=== PATIENT | female | born 1955 | race American Indian/Alaskan Native ===

== ENCOUNTER 2019-07-14 08:25 | Inpatient (IN) | payer MEDICARE ==
[2019-07-14] MEDS ORDERED: HALOPERIDOL LACTATE 5 MG/1 ML INJ IM PRN (15:19)
[2019-07-14] MEDS ORDERED: MELATONIN 5 MG TAB PO PRN (15:21)
[2019-07-14] MEDS ORDERED: ACETAMINOPHEN 325 MG TAB PO PRN (15:21)
[2019-07-14 16:29] LABS: Bacteria,Urine 1+ /HPF (Negative); Bilirubin,Urine NEG (Negative); Blood,Urine SM (Negative); Color,Urine Yellow (Yellow); Mucus,Urine FEW /HPF; Protein,Urine <15 mg/dL mg/dL (Negative)
[2019-07-14 16:49] LABS: Basophils # (Auto) 0.1 K/mm3 (0.0-0.1); Basophils % (Auto) 0.9 % (0.0-1.8); Eosinophils # (Auto) 0.2 K/mm3 (0.0-0.4); Eosinophils % (Auto) 2.2 % (0.0-4.3); Hematocrit 36.1 % (30.3-42.9); Hemoglobin 11.8 gm/dl (10.1-14.3); Lymphocytes # (Auto) 1.5 K/mm3 (1.2-5.4); Lymphocytes % (Auto) 21.7 % (13.4-35.0); Mean Corpuscular HGB Conc 33 % (30-34); Mean Corpuscular Volume 96 fl (79-97); Monocytes # (Auto) 0.4 K/mm3 (0.0-0.8); Monocytes % (Auto) 5.3 % (0.0-7.3); Platelet Count 351 K/mm3 (140-440); Red Blood Count 3.78 M/mm3 (3.65-5.03); Red Cell Distribution Width 14.8 % (13.2-15.2)
[2019-07-14 17:10] LABS: Alanine Aminotransferase 27 units/L (7-56); Albumin 3.6 g/dL (3.9-5); BUN/Creatinine Ratio 23; Blood Urea Nitrogen 18 mg/dL (7-17); Calcium 8.2 mg/dL (8.4-10.2); Chol/HDL Ratio 2.34 %; HDL Cholesterol 47 mg/dL (40-59); Hemolysis Index 9; LDL Cholesterol,Direct 51 mg/dL (50-130)
[2019-07-14] MEDS: traZODone 50 MG TAB PO SCH ×2 (21:41→21:47)
[2019-07-14] MEDS: risperiDONE 0.25 MG TAB PO SCH ×2 (21:41→21:47)
[2019-07-14] MEDS: LORazepam 2 MG/ML VIAL IM SCH (21:42)
[2019-07-14] MEDS ORDERED: LORazepam 2 MG/ML VIAL IM PRN (21:55)
[2019-07-15] MEDS: risperiDONE 0.25 MG TAB PO SCH ×2 (09:40→22:03)
--- NOTE | 2019-07-15 10:29 | History and Physical Report ---
GP History & Physical - History of Present Illness Date of admission: 07/14/19 Reason for Admission: Danger to self, Impaired reality testing, Psychopathology interference, Unable to care for self Chief Complaint: "I don't know why I am here History of Present Illness: The patient is a 64yo disabled AAF with history of Bipolar disorder, Alcohol use disorder and multiple medical problems including DM, HTN, Breast Ca, and NM. She was transferred from [facility] with history of acute psychosis. She was reportedly repeating words and not making much sense. Patient seen by me this morning. She is alert and oriented but disorganized, confused and not able to give a clear history. She does not know why she is here. She is clearly paranoid but denies SI/HI/AVH. She reports that she was on Seroquel but could not tell the dose. PAST PSYCHIATRIC HISTORY: Diagnoses: Bipolar disorder Suicide attempts or Self-harm behavior: Unknown Prior psychiatric hospitalizations: Yes Substance Abuse history: Unknown Previous psychiatric medications tried: Seroquel Outpatient treatment: Unknown PAST MEDICAL HISTORY: DM, HTN, Breast Ca, and NM Family Psychiatric History None reported or documented SOCIAL HISTORY Marital Status: Living Arrangements: Alone Employment Status: Disabled Access to guns/weapons: no Education: Grade 12 History of Abuse: Unknown Legal History: no REVIEW OF SYSTEMS Constitutional: Negative for weight loss ENT: Negative for stridor Respiratory: Negative for cough or hemoptysis All other systems reviewed and are negative Diagnoses: Schizoaffective disorder, Bipolar type Treatment Plan Patient will be admitted for inpatient psychiatric evaluation, medication adjustment and close monitoring The patient's behavior, mood, sleep and appetite will be closely monitored. Patient will be enrolled in individual and group therapeutic sessions and encouraged to attend. Patient will be provided with a safe and structured environment. Patient's physical health needs will be addressed by the Hospitalist. Hospitalist Consulted Labs including CBC, CMP, Lipid profile and Hemoglobin A1C ordered Social Assessment will be completed and the Pastoral Worker will work with patient and family to ensure a suitable and safe disposition Medication adjustment will be made as clinically indicated The patient agreed on the treatment plan, understood the risk, benefit, altern ative treatment, potential consequence of no treatment, and gave informed consent. ELOS 5 TO 7 days Legal Status: Involuntary Patient Problems: Current Active Problems Schizoaffective disorder, bipolar type (Acute) Reaction to Hospitalization: Accepting Medications and Allergies Allergies Allergy/AdvReac Type Severity Reaction Status Date / Time lisinopril AdvReac Unknown Verified 07/14/19 13:34 Home Medications Medication Instructions Recorded Confirmed Last Taken Type Celexa 40 mg PO DAILY 07/15/19 07/15/19 Unknown History Neurontin 600 mg PO TID 07/15/19 07/15/19 Unknown History Prilosec 20 mg PO DAILY 07/15/19 07/15/19 Unknown History SEROquel 300 mg PO QHS 07/15/19 07/15/19 Unknown History amLODIPine 5 mg PO DAILY 07/15/19 07/15/19 Unknown History metFORMIN 850 mg PO BID 07/15/19 07/15/19 Unknown History Active Meds: Active Medications Acetaminophen (Tylenol) 325 mg PO Q6H PRN PRN Reason: Pain, Mild (1-3) Haloperidol Lactate (Haldol) 5 mg IM Q6H PRN PRN Reason: Agitation Lorazepam (Ativan) 1 mg IM Q6H PRN PRN Reason: Agitation Melatonin (Melatonin) 5 mg PO QHS PRN PRN Reason: Sleep Miscellaneous Medication (Seroquel) 300 mg PO QHS [facility] Miscellaneous Medication (Amlodipine) 5 mg PO DAILY [facility] Miscellaneous Medication (Metformin) 850 mg PO BID [facility] Miscellaneous Medication (Celexa) 40 mg PO DAILY [facility] Miscellaneous Medication (Neurontin) 600 mg PO TID [facility] Risperidone (Risperdal) 0.25 mg PO BID [facility] Last Admin: 07/15/19 09:40 Dose: 0.25 mg Documented by: Trazodone HCl (Desyrel) 50 mg PO QHS [facility] Last Admin: 07/14/19 21:47 Dose: Not Given Documented by: Results - Results Labs/Vitals: Laboratory Last Values WBC 7.1 K/mm3 (4.5-11.0) 07/14/19 16:24 RBC 3.78 M/mm3 (3.65-5.03) 07/14/19 16:24 Hgb 11.8 gm/dl (10.1-14.3) 07/14/19 16:24 Hct 36.1 % (30.3-42.9) 07/14/19 16:24 MCV 96 fl (79-97) 07/14/19 16:24 MCH 31 pg (28-32) 07/14/19 16:24 MCHC 33 % (30-34) 07/14/19 16:24 RDW 14.8 % (13.2-15.2) 07/14/19 16:24 Plt Count 351 K/mm3 (140-440) 07/14/19 16:24 Lymph % (Auto) 21.7 % (13.4-35.0) 07/14/19 16:24 [place] % (Auto) 5.3 % (0.0-7.3) 07/14/19 16:24 Eos % (Auto) 2.2 % (0.0-4.3) 07/14/19 16:24 Baso % (Auto) 0.9 % (0.0-1.8) 07/14/19 16:24 Lymph # 1.5 K/mm3 (1.2-5.4) 07/14/19 16:24 [place] # 0.4 K/mm3 (0.0-0.8) 07/14/19 16:24 Eos # 0.2 K/mm3 (0.0-0.4) 07/14/19 16:24 Baso # 0.1 K/mm3 (0.0-0.1) 07/14/19 16:24 Seg Neutrophils % 69.9 % (40.0-70.0) 07/14/19 16:24 Seg Neutrophils # 5.0 K/mm3 (1.8-7.7) 07/14/19 16:24 Sodium 142 mmol/L (137-145) 07/14/19 16:24 Potassium 3.1 mmol/L (3.6-5.0) L 07/14/19 16:24 Chloride 100.9 mmol/L (98-107) 07/14/19 16:24 Carbon Dioxide 22 mmol/L (22-30) 07/14/19 16:24 Anion Gap 22 mmol/L 07/14/19 16:24 BUN 18 mg/dL (7-17) H 07/14/19 16:24 Creatinine 0.8 mg/dL (0.7-1.2) 07/14/19 16:24 Estimated GFR > 60 ml/min 07/14/19 16:24 BUN/Creatinine Ratio 23 % 07/14/19 16:24 Glucose 115 mg/dL (65-100) H 07/14/19 16:24 POC Glucose 137 (70-105) H 07/15/19 06:42 Hemoglobin A1c 6.4 % (4-6) H 07/14/19 16:24 Calcium 8.2 mg/dL (8.4-10.2) L 07/14/19 16:24 Total Bilirubin 0.50 mg/dL (0.1-1.2) 07/14/19 16:24 AST 40 units/L (5-40) 07/14/19 16:24 ALT 27 units/L (7-56) 07/14/19 16:24 Alkaline Phosphatase 61 units/L (35-129) 07/14/19 16:24 Total Protein 6.7 g/dL (6.3-8.2) 07/14/19 16:24 Albumin 3.6 g/dL (3.9-5) L 07/14/19 16:24 Albumin/Globulin Ratio 1.2 % 07/14/19 16:24 Triglycerides 73 mg/dL (2-149) 07/14/19 16:24 Cholesterol 110 mg/dL (50-199) 07/14/19 16:24 LDL Cholesterol Direct 51 mg/dL (50-130) 07/14/19 16:24 HDL Cholesterol 47 mg/dL (40-59) 07/14/19 16:24 Cholesterol/HDL Ratio 2.34 % 07/14/19 16:24 TSH 3.480 mlU/mL (0.270-4.200) 07/14/19 16:24 Urine Color Yellow (Yellow) 07/14/19 Unknown Urine Turbidity Clear (Clear) 07/14/19 Unknown Urine pH 6.0 (5.0-7.0) 07/14/19 Unknown Ur Specific [place] 1.015 (1.003-1.030) 07/14/19 Unknown Urine Protein <15 mg/dl mg/dL (Negative) 07/14/19 Unknown Urine Glucose (UA) Neg mg/dL (Negative) 07/14/19 Unknown Urine Ketones 20 mg/dL (Negative) 07/14/19 Unknown Urine Blood Sm (Negative) 07/14/19 Unknown Urine Nitrite Neg (Negative) 07/14/19 Unknown Urine Bilirubin Neg (Negative) 07/14/19 Unknown Urine Urobilinogen 2.0 mg/dL (<2.0) 07/14/19 Unknown Ur Leukocyte Esterase Neg (Negative) 07/14/19 Unknown Urine WBC (Auto) 49.0 /HPF (0.0-6.0) H 07/14/19 Unknown Urine RBC (Auto) 7.0 /HPF (0.0-6.0) 07/14/19 Unknown U Epithel Cells (Auto) 2.0 /HPF (0-13.0) 07/14/19 Unknown Urine Bacteria (Auto) 1+ /HPF (Negative) 07/14/19 Unknown Urine Mucus Few /HPF 07/14/19 Unknown Last Vital Signs Temp 98.5 F 07/15/19 10:00 Pulse 70 07/15/19 10:00 Resp 18 07/15/19 10:00 BP 112/49 07/15/19 10:00 Pulse Ox 99 07/15/19 10:00 Physical Examination - Constitutional Vitals: Vital Signs Temp Pulse Resp BP Pulse Ox 98.5 F 70 18 112/49 99 07/15/19 10:00 07/15/19 10:00 07/15/19 10:00 07/15/19 10:00 07/15/19 10:00 Temperature -Last 24 Hours Temperature 98.5 F Temperature 99.6 F Temperature 99.6 F Temperature 99.0 F Mental Status Exam - Vital signs Last Vital Signs Temp 98.5 F 07/15/19 10:00 Pulse 70 07/15/19 10:00 Resp 18 07/15/19 10:00 BP 112/49 07/15/19 10:00 Pulse Ox 99 07/15/19 10:00 - Exam Orientation: place, person Affect: flat Mood: anxious Thought content: delusions, paranoia Thought Process: Disorganized Perceptions: none Speech: slow Concentration: distractible Motor activity: lethargic Level of consciousness: alert Memory: Intact Interaction: uncooperative Assessment and Plan - Psychiatric problem (1) Schizoaffective disorder, bipolar type Current Visit: Yes Status: Acute Physician Certification - Certification Statement Physician Certification Statement: This is an acknowledgement statement that RAGHAVENDRA YO is a 64 year old F who requires inpatient psychiatric admission for treatment which could reasonably be expected to improve the patient's condition for disorganized behavior and inability to care for self Estimated period of time patient will need to remain in the hospital: [5 to 7 days] Plan for post-hospital care: Out-patient care
[2019-07-15] MEDS: GABAPENTIN 300 MG CAP PO SCH ×2 (14:21→21:46)
[2019-07-15] MEDS: CITALOPRAM 20 MG TAB PO SCH (14:46)
--- NOTE | 2019-07-15 15:55 | Consultation ---
History of Present Illness - Reason for Consult Consult date: 07/15/19 Diabetes mellitus and HTN Requesting physician: ELISE LYNN - History of Present Illness Patient is a 64 year old woman with hx of bipolar disorder, alcohol use disorder, diabetes mellitus, hypertension, breast cancer and CAD. Who presents to our facility from [facility] with history of acute psychosis. Were consulted to assist with management of patient's medical conditions. I did discuss with patient extensively she tells me that she has been hospitalized in a [facility] twice in the past when she did not need it. She also denies any chest pain nausea vomiting or diarrhea. Nursing staff reports to me that the patient had some low-grade fever a day ago but none today. And he also reported the patient has some urinary loss indicating incontinence. Past History Past Medical History: diabetes, hypertension, hyperlipidemia Past Surgical History: Other (Appendectomy) Social history: Family history: no significant family history Medications and Allergies Allergies Allergy/AdvReac Type Severity Reaction Status Date / Time lisinopril AdvReac Unknown Verified 07/14/19 13:34 Home Medications Medication Instructions Recorded Confirmed Last Taken Type Celexa 40 mg PO DAILY 07/15/19 07/15/19 Unknown History Neurontin 600 mg PO TID 07/15/19 07/15/19 Unknown History Prilosec 20 mg PO DAILY 07/15/19 07/15/19 Unknown History SEROquel 300 mg PO QHS 07/15/19 07/15/19 Unknown History amLODIPine 5 mg PO DAILY 07/15/19 07/15/19 Unknown History metFORMIN 850 mg PO BID 07/15/19 07/15/19 Unknown History Active Meds: Active Medications Acetaminophen (Tylenol) 325 mg PO Q6H PRN PRN Reason: Pain, Mild (1-3) Amlodipine Besylate (Amlodipine) 5 mg PO QDAY [facility] Citalopram Hydrobromide (Celexa) 40 mg PO QDAY [facility] Last Admin: 07/15/19 14:46 Dose: 40 mg Documented by: Gabapentin (Gabapentin) 600 mg PO Q8HR [facility] Last Admin: 07/15/19 14:21 Dose: 600 mg Documented by: Haloperidol Lactate (Haldol) 5 mg IM Q6H PRN PRN Reason: Agitation Lorazepam (Ativan) 1 mg IM Q6H PRN PRN Reason: Agitation Melatonin (Melatonin) 5 mg PO QHS PRN PRN Reason: Sleep Metformin HCl (Glucophage) 850 mg PO BIDDIAB [facility] Quetiapine Fumarate (Seroquel) 300 mg PO QHS [facility] Risperidone (Risperdal) 0.25 mg PO BID [facility] Last Admin: 07/15/19 09:40 Dose: 0.25 mg Documented by: Trazodone HCl (Desyrel) 50 mg PO QHS [facility] Last Admin: 07/14/19 21:47 Dose: Not Given Documented by: Review of Systems All systems: negative Constitutional: no weight loss, no weight gain, no fever, no chills, no sweats, no night sweats, no fatigue, no weakness, no malaise, no lethargy Cardiovascular: no chest pain, no palpitations, no syncope, no paroxysmal nocturnal dyspnea, no claudication, no high blood pressure, no leg edema, no decreased exercise tolerance Respiratory: no cough with sputum, no hemoptysis, no shortness of breath, no wheezing, no pleurisy, no pain, no pain on inspiration, no sleep apnea, no home oxygen Gastrointestinal: no nausea, no vomiting, no change in bowel habits, no h ematochezia, no early satiety, no heartburn, no jaundice, no dyspepsia/bloating Musculoskeletal: no neck stiffness, no shooting arm pain, no low back pain, no shooting leg pain, no morning stiffness, no muscle weakness, no loss of height, no prior amputations, no other Integumentary: no rash, no redness, no jaundice, no lesions, no color changes, n o unusual bruising, no hirsutism, no foot/leg ulcers Neurological: no weakness, no tingling, no seizures, no ataxia, no change in speech, no hearing difficulties Psychiatric: disorientation, confusion, irritability Endocrine: no heat intolerance, no polyphagia, no deepening of the voice, no low blood sugars, no recent glucocorticoid use Hematologic/Lymphatic: no easy bruising, no easy bleeding, no lymphadenopathy, no lymphedema, no thrombophilia Allergic/Immunologic: no allergic rhinitis, no persistent infections Exam - Constitutional Vitals: Temp Pulse Resp BP Pulse Ox 98.5 F 70 18 112/49 99 07/15/19 10:00 07/15/19 10:00 07/15/19 10:00 07/15/19 10:00 07/15/19 10:00 Results - Labs CBC & Chem 7: 07/14/19 16:24 07/14/19 16:24 Labs: Abnormal lab results 07/14/19 07/14/19 07/14/19 Range/Units 16:18 16:24 16:24 Potassium 3.1 L (3.6-5.0) mmol/L BUN 18 H (7-17) mg/dL Glucose 115 H (65-100) mg/dL POC Glucose 123 H (70-105) Hemoglobin A1c 6.4 H (4-6) % Calcium 8.2 L (8.4-10.2) mg/dL Albumin 3.6 L (3.9-5) g/dL Urine WBC (Auto) (0.0-6.0) /HPF 07/14/19 07/14/19 07/15/19 Range/Units 20:39 Unknown 06:42 Potassium (3.6-5.0) mmol/L BUN (7-17) mg/dL Glucose (65-100) mg/dL POC Glucose 126 H 137 H (70-105) Hemoglobin A1c (4-6) % Calcium (8.4-10.2) mg/dL Albumin (3.9-5) g/dL Urine WBC (Auto) 49.0 H (0.0-6.0) /HPF 07/15/19 Range/Units 12:00 Potassium (3.6-5.0) mmol/L BUN (7-17) mg/dL Glucose (65-100) mg/dL POC Glucose 130 H (70-105) Hemoglobin A1c (4-6) % Calcium (8.4-10.2) mg/dL Albumin (3.9-5) g/dL Urine WBC (Auto) (0.0-6.0) /HPF - Imaging and Cardiology EKG: pending, report reviewed, image reviewed, other Assessment and Plan Patient is a 64 year old woman with hx of bipolar disorder, alcohol use disorder, diabetes mellitus, hypertension, breast cancer and CAD. Who presents to our facility from [facility] with history of acute psychosis. Were consulted to assist with management of patient's medical conditions. I did discuss with patient extensively she tells me that she has been hospitalized in a [facility] twice in the past when she did not need it. She also denies any chest pain nausea vomiting or diarrhea. Nursing staff reports to me that the patient had some low-grade fever a day ago but none today. And he also reported the patient has some urinary loss indicating incontinence. Acute Cystitis HTN DM Urinary incontinence CAD Hyperlipidemia Bipolar Disorder Alcohol use disorder Plan Continue supportive care per Pysch team Agree with resumption of home meds Accu check ac/hs Start on Keflex pO X 3 days DVT/GI propy
[2019-07-15] MEDS: metFORMIN 850 MG TAB PO SCH (19:40)
[2019-07-15] MEDS: cephALEXin 500 MG CAP PO SCH (21:38)
[2019-07-15] MEDS ORDERED: QUEtiapine 100 MG TAB PO SCH (22:00)
[2019-07-15] MEDS: traZODone 50 MG TAB PO SCH (22:03)
[2019-07-16] MEDS: GABAPENTIN 300 MG CAP PO SCH ×3 (06:05→21:52)
[2019-07-16] MEDS: metFORMIN 850 MG TAB PO SCH ×2 (08:40→17:15)
[2019-07-16] MEDS: risperiDONE 0.25 MG TAB PO SCH ×2 (09:54→21:51)
[2019-07-16] MEDS: CITALOPRAM 20 MG TAB PO SCH (09:54)
[2019-07-16] MEDS: cephALEXin 500 MG CAP PO SCH ×2 (09:54→21:51)
--- NOTE | 2019-07-16 09:54 | Progress Note ---
Subjective Date of service: 07/16/19 Principal diagnosis: Schizoaffective disorder, Bpolar type Subjective Comment: I interviewed the patient this morning. Medical records reviewed and patient's progress was discussed with unit staff. Nursing staff reports that patient is not compliant with treatment - refusing to take some her medications. In my interview with the patient this morning, the patient reports mood as ok. She is disorganized, slow and very paranoid. She denies SI/HI/AVH Reason for continuing inpatient treatment: Patient is disorganized, paranoid and unable to care for self Review of Symptoms: Constitutional: Negative for weight loss ENT: Negative for stridor Respiratory: Negative for cough or hemoptysis All other systems reviewed and are negative MSE Appearance: Wearing appropriate clothing. Poor hygiene Behavior: Cooperative. Mood: "OK" Affect: Congruent with stated mood Thought Process: Goal directed Speech: decreased rate Thought Content: Paranoia Harmfulness Denies SI/HI Hallucinations: patient denies Consciousness: alert. Cognition/Memory: normal. Insight/Judgment: Limited. Assessment and Plan (1) Schizoaffective disorder, bipolar type Treatment Plan Due to the psychiatric conditions and treatment listed in the Assessment and Plan - the patient requires continued hospitalization. Will continue inpatient treatment to allow for medication adjustment and monitoring. Will continue q15 min safety checks. Will encourage the use of environmental modifications and non-pharmacologic approaches for the management of behavioral and psychological symptoms. Will continue current psych medications. Medication change made today: None Monitor for medication side effects. The patient will continue on medications for physical illnesses, and Hospitalist will closely monitor these Continue intensive physical and occupational therapies. Monitor patient's mood, sleep, appetite, and behavior closely Encourage patient to participate in individual and group therapeutic sessions on the [place]. Will provide a safe and therapeutic environment for patient. ELOS 5 days Assessment and Plan - Patient Problems (1) Schizoaffective disorder, bipolar type Current Visit: Yes Status: Acute Medications and Allergies Allergies Allergy/AdvReac Type Severity Reaction Status Date / Time lisinopril AdvReac Unknown Verified 07/14/19 13:34 Home Medications Medication Instructions Recorded Confirmed Last Taken Type Celexa 40 mg PO DAILY 07/15/19 07/15/19 Unknown History Neurontin 600 mg PO TID 07/15/19 07/15/19 Unknown History Prilosec 20 mg PO DAILY 07/15/19 07/15/19 Unknown History SEROquel 300 mg PO QHS 07/15/19 07/15/19 Unknown History amLODIPine 5 mg PO DAILY 07/15/19 07/15/19 Unknown History metFORMIN 850 mg PO BID 07/15/19 07/15/19 Unknown History Active Meds: Active Medications Acetaminophen (Tylenol) 325 mg PO Q6H PRN PRN Reason: Pain, Mild (1-3) Amlodipine Besylate (Amlodipine) 5 mg PO QDAY [facility] Cephalexin (Keflex) 500 mg PO Q12HR [facility] Stop: 07/18/19 10:01 Last Admin: 07/15/19 21:38 Dose: 500 mg Documented by: Citalopram Hydrobromide (Celexa) 40 mg PO QDAY [facility] Last Admin: 07/15/19 14:46 Dose: 40 mg Documented by: Gabapentin (Gabapentin) 600 mg PO Q8HR [facility] Last Admin: 07/16/19 06:05 Dose: 600 mg Documented by: Haloperidol Lactate (Haldol) 5 mg IM Q6H PRN PRN Reason: Agitation Lorazepam (Ativan) 1 mg IM Q6H PRN PRN Reason: Agitation Melatonin (Melatonin) 5 mg PO QHS PRN PRN Reason: Sleep Metformin HCl (Glucophage) 850 mg PO BIDDIAB [facility] Last Admin: 07/15/19 19:40 Dose: 850 mg Documented by: Quetiapine Fumarate (Seroquel) 300 mg PO QHS [facility] Last Admin: 07/15/19 21:37 Dose: 150 mg Documented by: Risperidone (Risperdal) 0.25 mg PO BID [facility] Last Admin: 07/15/19 22:03 Dose: Not Given Documented by: Trazodone HCl (Desyrel) 50 mg PO QHS [facility] Last Admin: 07/15/19 22:03 Dose: Not Given Documented by: Results - Results Labs/Vitals: Laboratory Last Values WBC 7.1 K/mm3 (4.5-11.0) 07/14/19 16:24 RBC 3.78 M/mm3 (3.65-5.03) 07/14/19 16:24 Hgb 11.8 gm/dl (10.1-14.3) 07/14/19 16:24 Hct 36.1 % (30.3-42.9) 07/14/19 16:24 MCV 96 fl (79-97) 07/14/19 16:24 MCH 31 pg (28-32) 07/14/19 16:24 MCHC 33 % (30-34) 07/14/19 16:24 RDW 14.8 % (13.2-15.2) 07/14/19 16:24 Plt Count 351 K/mm3 (140-440) 07/14/19 16:24 Lymph % (Auto) 21.7 % (13.4-35.0) 07/14/19 16:24 [place] % (Auto) 5.3 % (0.0-7.3) 07/14/19 16:24 Eos % (Auto) 2.2 % (0.0-4.3) 07/14/19 16:24 Baso % (Auto) 0.9 % (0.0-1.8) 07/14/19 16:24 Lymph # 1.5 K/mm3 (1.2-5.4) 07/14/19 16:24 [place] # 0.4 K/mm3 (0.0-0.8) 07/14/19 16:24 Eos # 0.2 K/mm3 (0.0-0.4) 07/14/19 16:24 Baso # 0.1 K/mm3 (0.0-0.1) 07/14/19 16:24 Seg Neutrophils % 69.9 % (40.0-70.0) 07/14/19 16:24 Seg Neutrophils # 5.0 K/mm3 (1.8-7.7) 07/14/19 16:24 Sodium 142 mmol/L (137-145) 07/14/19 16:24 Potassium 3.1 mmol/L (3.6-5.0) L 07/14/19 16:24 Chloride 100.9 mmol/L (98-107) 07/14/19 16:24 Carbon Dioxide 22 mmol/L (22-30) 07/14/19 16:24 Anion Gap 22 mmol/L 07/14/19 16:24 BUN 18 mg/dL (7-17) H 07/14/19 16:24 Creatinine 0.8 mg/dL (0.7-1.2) 07/14/19 16:24 Estimated GFR > 60 ml/min 07/14/19 16:24 BUN/Creatinine Ratio 23 % 07/14/19 16:24 Glucose 115 mg/dL (65-100) H 07/14/19 16:24 POC Glucose 105 (70-105) 07/16/19 08:10 Hemoglobin A1c 6.4 % (4-6) H 07/14/19 16:24 Calcium 8.2 mg/dL (8.4-10.2) L 07/14/19 16:24 Total Bilirubin 0.50 mg/dL (0.1-1.2) 07/14/19 16:24 AST 40 units/L (5-40) 07/14/19 16:24 ALT 27 units/L (7-56) 07/14/19 16:24 Alkaline Phosphatase 61 units/L (35-129) 07/14/19 16:24 Total Protein 6.7 g/dL (6.3-8.2) 07/14/19 16:24 Albumin 3.6 g/dL (3.9-5) L 07/14/19 16:24 Albumin/Globulin Ratio 1.2 % 07/14/19 16:24 Triglycerides 73 mg/dL (2-149) 07/14/19 16:24 Cholesterol 110 mg/dL (50-199) 07/14/19 16:24 LDL Cholesterol Direct 51 mg/dL (50-130) 07/14/19 16:24 HDL Cholesterol 47 mg/dL (40-59) 07/14/19 16:24 Cholesterol/HDL Ratio 2.34 % 07/14/19 16:24 TSH 3.480 mlU/mL (0.270-4.200) 07/14/19 16:24 Urine Color Yellow (Yellow) 07/14/19 Unknown Urine Turbidity Clear (Clear) 07/14/19 Unknown Urine pH 6.0 (5.0-7.0) 07/14/19 Unknown Ur Specific [place] 1.015 (1.003-1.030) 07/14/19 Unknown Urine Protein <15 mg/dl mg/dL (Negative) 07/14/19 Unknown Urine Glucose (UA) Neg mg/dL (Negative) 07/14/19 Unknown Urine Ketones 20 mg/dL (Negative) 07/14/19 Unknown Urine Blood Sm (Negative) 07/14/19 Unknown Urine Nitrite Neg (Negative) 07/14/19 Unknown Urine Bilirubin Neg (Negative) 07/14/19 Unknown Urine Urobilinogen 2.0 mg/dL (<2.0) 07/14/19 Unknown Ur Leukocyte Esterase Neg (Negative) 07/14/19 Unknown Urine WBC (Auto) 49.0 /HPF (0.0-6.0) H 07/14/19 Unknown Urine RBC (Auto) 7.0 /HPF (0.0-6.0) 07/14/19 Unknown U Epithel Cells (Auto) 2.0 /HPF (0-13.0) 07/14/19 Unknown Urine Bacteria (Auto) 1+ /HPF (Negative) 07/14/19 Unknown Urine Mucus Few /HPF 07/14/19 Unknown Last Vital Signs Temp 98.6 F 07/16/19 08:23 Pulse 86 07/16/19 08:23 Resp 18 07/16/19 08:23 BP 120/72 07/16/19 08:23 Pulse Ox 100 07/16/19 08:23
[2019-07-16] MEDS: amLODIPine 5 MG TAB PO SCH (09:55)
[2019-07-16] MEDS: QUEtiapine 200 MG TAB PO SCH (21:51)
[2019-07-16] MEDS: traZODone 50 MG TAB PO SCH (21:51)
[2019-07-16] MEDS ORDERED: QUEtiapine 100 MG TAB PO SCH (22:00)
[2019-07-17] MEDS: GABAPENTIN 300 MG CAP PO SCH ×3 (06:15→21:35)
[2019-07-17] MEDS: risperiDONE 0.25 MG TAB PO SCH ×2 (09:08→21:36)
[2019-07-17] MEDS: cephALEXin 500 MG CAP PO SCH ×2 (09:08→21:35)
[2019-07-17] MEDS: CITALOPRAM 20 MG TAB PO SCH (09:08)
[2019-07-17] MEDS: amLODIPine 5 MG TAB PO SCH (09:09)
[2019-07-17] MEDS: metFORMIN 850 MG TAB PO SCH ×2 (09:09→17:26)
--- NOTE | 2019-07-17 10:43 | Progress Note ---
Subjective Date of service: 07/17/19 Principal diagnosis: Schizoaffective disorder, Bpolar type Subjective Comment: I interviewed the patient this morning. Medical records reviewed and patient's progress was discussed with unit staff. Patient is improving. She accepted her medications and slept through the night but still disorganized, slow and paranoid. She denies SI/HI/AVH Reason for continuing inpatient treatment: Patient is disorganized, paranoid and unable to care for self Review of Symptoms: Constitutional: Negative for weight loss ENT: Negative for stridor Respiratory: Negative for cough or hemoptysis All other systems reviewed and are negative MSE Appearance: Wearing appropriate clothing. Poor hygiene Behavior: Cooperative. Mood: "OK" Affect: Congruent with stated mood Thought Process: Goal directed Speech: decreased rate Thought Content: Paranoia Harmfulness Denies SI/HI Hallucinations: patient denies Consciousness: alert. Cognition/Memory: normal. Insight/Judgment: Limited. Assessment and Plan (1) Schizoaffective disorder, bipolar type Treatment Plan Due to the psychiatric conditions and treatment listed in the Assessment and Plan - the patient requires continued hospitalization. Will continue inpatient treatment to allow for medication adjustment and monitoring. Will continue q15 min safety checks. Will encourage the use of environmental modifications and non-pharmacologic approaches for the management of behavioral and psychological symptoms. Will continue current psych medications. Medication change made today: None Monitor for medication side effects. The patient will continue on medications for physical illnesses, and Hospitalist will closely monitor these Continue intensive physical and occupational therapies. Monitor patient's mood, sleep, appetite, and behavior closely Encourage patient to participate in individual and group therapeutic sessions on the [place]. Will provide a safe and therapeutic environment for patient. ELOS 4 days Assessment and Plan - Patient Problems (1) Schizoaffective disorder, bipolar type Current Visit: Yes Status: Acute Medications and Allergies Allergies Allergy/AdvReac Type Severity Reaction Status Date / Time lisinopril AdvReac Unknown Verified 07/14/19 13:34 Home Medications Medication Instructions Recorded Confirmed Last Taken Type Celexa 40 mg PO DAILY 07/15/19 07/15/19 Unknown History Neurontin 600 mg PO TID 07/15/19 07/15/19 Unknown History Prilosec 20 mg PO DAILY 07/15/19 07/15/19 Unknown History SEROquel 300 mg PO QHS 07/15/19 07/15/19 Unknown History amLODIPine 5 mg PO DAILY 07/15/19 07/15/19 Unknown History metFORMIN 850 mg PO BID 07/15/19 07/15/19 Unknown History Active Meds: Active Medications Acetaminophen (Tylenol) 325 mg PO Q6H PRN PRN Reason: Pain, Mild (1-3) Amlodipine Besylate (Amlodipine) 5 mg PO QDAY [facility] Last Admin: 07/17/19 09:09 Dose: 5 mg Documented by: Cephalexin (Keflex) 500 mg PO Q12HR [facility] Stop: 07/18/19 10:01 Last Admin: 07/17/19 09:08 Dose: 500 mg Documented by: Citalopram Hydrobromide (Celexa) 40 mg PO QDAY [facility] Last Admin: 07/17/19 09:08 Dose: 40 mg Documented by: Gabapentin (Gabapentin) 600 mg PO Q8HR [facility] Last Admin: 07/17/19 06:15 Dose: 600 mg Documented by: Haloperidol Lactate (Haldol) 5 mg IM Q6H PRN PRN Reason: Agitation Lorazepam (Ativan) 1 mg IM Q6H PRN PRN Reason: Agitation Melatonin (Melatonin) 5 mg PO QHS PRN PRN Reason: Sleep Metformin HCl (Glucophage) 850 mg PO BIDDIAB [facility] Last Admin: 07/17/19 09:09 Dose: 850 mg Documented by: Quetiapine Fumarate (Seroquel) 100 mg PO QHS [facility] Last Admin: 07/16/19 21:58 Dose: 100 mg Documented by: Quetiapine Fumarate (Seroquel) 200 mg PO QHS [facility] Last Admin: 07/16/19 21:51 Dose: 200 mg Documented by: Risperidone (Risperdal) 0.25 mg PO BID [facility] Last Admin: 07/17/19 09:08 Dose: 0.25 mg Documented by: Trazodone HCl (Desyrel) 50 mg PO QHS [facility] Last Admin: 07/16/19 21:51 Dose: 50 mg Documented by: Results - Results Labs/Vitals: Laboratory Last Values WBC 7.1 K/mm3 (4.5-11.0) 07/14/19 16:24 RBC 3.78 M/mm3 (3.65-5.03) 07/14/19 16:24 Hgb 11.8 gm/dl (10.1-14.3) 07/14/19 16:24 Hct 36.1 % (30.3-42.9) 07/14/19 16:24 MCV 96 fl (79-97) 07/14/19 16:24 MCH 31 pg (28-32) 07/14/19 16:24 MCHC 33 % (30-34) 07/14/19 16:24 RDW 14.8 % (13.2-15.2) 07/14/19 16:24 Plt Count 351 K/mm3 (140-440) 07/14/19 16:24 Lymph % (Auto) 21.7 % (13.4-35.0) 07/14/19 16:24 [place] % (Auto) 5.3 % (0.0-7.3) 07/14/19 16:24 Eos % (Auto) 2.2 % (0.0-4.3) 07/14/19 16:24 Baso % (Auto) 0.9 % (0.0-1.8) 07/14/19 16:24 Lymph # 1.5 K/mm3 (1.2-5.4) 07/14/19 16:24 [place] # 0.4 K/mm3 (0.0-0.8) 07/14/19 16:24 Eos # 0.2 K/mm3 (0.0-0.4) 07/14/19 16:24 Baso # 0.1 K/mm3 (0.0-0.1) 07/14/19 16:24 Seg Neutrophils % 69.9 % (40.0-70.0) 07/14/19 16:24 Seg Neutrophils # 5.0 K/mm3 (1.8-7.7) 07/14/19 16:24 Sodium 142 mmol/L (137-145) 07/14/19 16:24 Potassium 3.1 mmol/L (3.6-5.0) L 07/14/19 16:24 Chloride 100.9 mmol/L (98-107) 07/14/19 16:24 Carbon Dioxide 22 mmol/L (22-30) 07/14/19 16:24 Anion Gap 22 mmol/L 07/14/19 16:24 BUN 18 mg/dL (7-17) H 07/14/19 16:24 Creatinine 0.8 mg/dL (0.7-1.2) 07/14/19 16:24 Estimated GFR > 60 ml/min 07/14/19 16:24 BUN/Creatinine Ratio 23 % 07/14/19 16:24 Glucose 115 mg/dL (65-100) H 07/14/19 16:24 POC Glucose 93 (70-105) 07/17/19 07:59 Hemoglobin A1c 6.4 % (4-6) H 07/14/19 16:24 Calcium 8.2 mg/dL (8.4-10.2) L 07/14/19 16:24 Total Bilirubin 0.50 mg/dL (0.1-1.2) 07/14/19 16:24 AST 40 units/L (5-40) 07/14/19 16:24 ALT 27 units/L (7-56) 07/14/19 16:24 Alkaline Phosphatase 61 units/L (35-129) 07/14/19 16:24 Total Protein 6.7 g/dL (6.3-8.2) 07/14/19 16:24 Albumin 3.6 g/dL (3.9-5) L 07/14/19 16:24 Albumin/Globulin Ratio 1.2 % 07/14/19 16:24 Triglycerides 73 mg/dL (2-149) 07/14/19 16:24 Cholesterol 110 mg/dL (50-199) 07/14/19 16:24 LDL Cholesterol Direct 51 mg/dL (50-130) 07/14/19 16:24 HDL Cholesterol 47 mg/dL (40-59) 07/14/19 16:24 Cholesterol/HDL Ratio 2.34 % 07/14/19 16:24 TSH 3.480 mlU/mL (0.270-4.200) 07/14/19 16:24 Urine Color Yellow (Yellow) 07/14/19 Unknown Urine Turbidity Clear (Clear) 07/14/19 Unknown Urine pH 6.0 (5.0-7.0) 07/14/19 Unknown Ur Specific [place] 1.015 (1.003-1.030) 07/14/19 Unknown Urine Protein <15 mg/dl mg/dL (Negative) 07/14/19 Unknown Urine Glucose (UA) Neg mg/dL (Negative) 07/14/19 Unknown Urine Ketones 20 mg/dL (Negative) 07/14/19 Unknown Urine Blood Sm (Negative) 07/14/19 Unknown Urine Nitrite Neg (Negative) 07/14/19 Unknown Urine Bilirubin Neg (Negative) 07/14/19 Unknown Urine Urobilinogen 2.0 mg/dL (<2.0) 07/14/19 Unknown Ur Leukocyte Esterase Neg (Negative) 07/14/19 Unknown Urine WBC (Auto) 49.0 /HPF (0.0-6.0) H 07/14/19 Unknown Urine RBC (Auto) 7.0 /HPF (0.0-6.0) 07/14/19 Unknown U Epithel Cells (Auto) 2.0 /HPF (0-13.0) 07/14/19 Unknown Urine Bacteria (Auto) 1+ /HPF (Negative) 07/14/19 Unknown Urine Mucus Few /HPF 07/14/19 Unknown Last Vital Signs Temp 98.6 F 07/16/19 08:23 Pulse 72 07/17/19 09:09 Resp 18 07/16/19 08:23 BP 110/57 07/17/19 09:09 Pulse Ox 100 07/16/19 08:23
[2019-07-17] MEDS: traZODone 50 MG TAB PO SCH (21:35)
[2019-07-17] MEDS: QUEtiapine 200 MG TAB PO SCH (21:38)
[2019-07-17] MEDS ORDERED: QUEtiapine 200 MG TAB PO SCH (22:00)
[2019-07-17] MEDS: QUEtiapine 100 MG TAB PO SCH (22:20)
[2019-07-18] MEDS: GABAPENTIN 300 MG CAP PO SCH ×3 (06:08→22:30)
[2019-07-18] MEDS: metFORMIN 850 MG TAB PO SCH ×2 (08:53→17:36)
--- NOTE | 2019-07-18 09:20 | Progress Note ---
Subjective Date of service: 07/18/19 Principal diagnosis: Schizoaffective disorder, Bpolar type Subjective Comment: I interviewed the patient this morning. Medical records reviewed and patient's progress was discussed with unit staff. Patient is reports that she was bitten by a rat on her right index finger, she tries to show me the bite don but none visible. She has been preoccupied by thii invisible don, She is disorganized and paranoid. She denies SI/HI/AVH Reason for continuing inpatient treatment: Patient is disorganized, paranoid and unable to care for self Review of Symptoms: Constitutional: Negative for weight loss ENT: Negative for stridor Respiratory: Negative for cough or hemoptysis All other systems reviewed and are negative MSE Appearance: Wearing appropriate clothing. Poor hygiene Behavior: Cooperative. Mood: "OK" Affect: Congruent with stated mood Thought Process: Goal directed Speech: decreased rate Thought Content: Paranoia Harmfulness Denies SI/HI Hallucinations: patient denies Consciousness: alert. Cognition/Memory: normal. Insight/Judgment: Limited. Assessment and Plan (1) Schizoaffective disorder, bipolar type Treatment Plan Due to the psychiatric conditions and treatment listed in the Assessment and Plan - the patient requires continued hospitalization. Will continue inpatient treatment to allow for medication adjustment and monitoring. Will continue q15 min safety checks. Will encourage the use of environmental modifications and non-pharmacologic approaches for the management of behavioral and psychological symptoms. Will continue current psych medications. Medication change made today: Start Depakote DR 250mg bid Monitor for medication side effects. The patient will continue on medications for physical illnesses, and Hospitalist will closely monitor these Continue intensive physical and occupational therapies. Monitor patient's mood, sleep, appetite, and behavior closely Encourage patient to participate in individual and group therapeutic sessions on the [place]. Will provide a safe and therapeutic environment for patient. ELOS 4 days Assessment and Plan - Patient Problems (1) Schizoaffective disorder, bipolar type Current Visit: Yes Status: Acute Medications and Allergies Allergies Allergy/AdvReac Type Severity Reaction Status Date / Time lisinopril AdvReac Unknown Verified 07/14/19 13:34 Home Medications Medication Instructions Recorded Confirmed Last Taken Type Celexa 40 mg PO DAILY 07/15/19 07/15/19 Unknown History Neurontin 600 mg PO TID 07/15/19 07/15/19 Unknown History Prilosec 20 mg PO DAILY 07/15/19 07/15/19 Unknown History SEROquel 300 mg PO QHS 07/15/19 07/15/19 Unknown History amLODIPine 5 mg PO DAILY 07/15/19 07/15/19 Unknown History metFORMIN 850 mg PO BID 07/15/19 07/15/19 Unknown History Active Meds: Active Medications Acetaminophen (Tylenol) 325 mg PO Q6H PRN PRN Reason: Pain, Mild (1-3) Amlodipine Besylate (Amlodipine) 5 mg PO QDAY [facility] Last Admin: 07/17/19 09:09 Dose: 5 mg Documented by: Cephalexin (Keflex) 500 mg PO Q12HR [facility] Stop: 07/18/19 10:01 Last Admin: 07/17/19 21:35 Dose: 500 mg Documented by: Citalopram Hydrobromide (Celexa) 40 mg PO QDAY [facility] Last Admin: 07/17/19 09:08 Dose: 40 mg Documented by: Gabapentin (Gabapentin) 600 mg PO Q8HR [facility] Last Admin: 07/18/19 06:08 Dose: 600 mg Documented by: Haloperidol Lactate (Haldol) 5 mg IM Q6H PRN PRN Reason: Agitation Lorazepam (Ativan) 1 mg IM Q6H PRN PRN Reason: Agitation Melatonin (Melatonin) 5 mg PO QHS PRN PRN Reason: Sleep Metformin HCl (Glucophage) 850 mg PO BIDDIAB [facility] Last Admin: 07/18/19 08:53 Dose: 850 mg Documented by: Quetiapine Fumarate (Seroquel) 200 mg PO QHS [facility] Last Admin: 07/17/19 21:38 Dose: 200 mg Documented by: Quetiapine Fumarate (Seroquel) 100 mg PO QHS [facility] Last Admin: 07/17/19 22:20 Dose: 100 mg Documented by: Risperidone (Risperdal) 0.25 mg PO BID [facility] Last Admin: 07/17/19 21:36 Dose: 0.25 mg Documented by: Trazodone HCl (Desyrel) 50 mg PO QHS [facility] Last Admin: 07/17/19 21:35 Dose: 50 mg Documented by: Results - Results Labs/Vitals: Laboratory Last Values WBC 7.1 K/mm3 (4.5-11.0) 07/14/19 16:24 RBC 3.78 M/mm3 (3.65-5.03) 07/14/19 16:24 Hgb 11.8 gm/dl (10.1-14.3) 07/14/19 16:24 Hct 36.1 % (30.3-42.9) 07/14/19 16:24 MCV 96 fl (79-97) 07/14/19 16:24 MCH 31 pg (28-32) 07/14/19 16:24 MCHC 33 % (30-34) 07/14/19 16:24 RDW 14.8 % (13.2-15.2) 07/14/19 16:24 Plt Count 351 K/mm3 (140-440) 07/14/19 16:24 Lymph % (Auto) 21.7 % (13.4-35.0) 07/14/19 16:24 [place] % (Auto) 5.3 % (0.0-7.3) 07/14/19 16:24 Eos % (Auto) 2.2 % (0.0-4.3) 07/14/19 16:24 Baso % (Auto) 0.9 % (0.0-1.8) 07/14/19 16:24 Lymph # 1.5 K/mm3 (1.2-5.4) 07/14/19 16:24 [place] # 0.4 K/mm3 (0.0-0.8) 07/14/19 16:24 Eos # 0.2 K/mm3 (0.0-0.4) 07/14/19 16: Baso # 0.1 K/mm3 (0.0-0.1) 07/14/19 16:24 Seg Neutrophils % 69.9 % (40.0-70.0) 07/14/19 16: Seg Neutrophils # 5.0 K/mm3 (1.8-7.7) 07/14/19 16:24 Sodium 142 mmol/L (137-145) 07/14/19 16:24 Potassium 3.1 mmol/L (3.6-5.0) L 07/14/19 16:24 Chloride 100.9 mmol/L (98-107) 07/14/19 16:24 Carbon Dioxide 22 mmol/L (22-30) 07/14/19 16:24 Anion Gap 22 mmol/L 07/14/19 16:24 BUN 18 mg/dL (7-17) H 07/14/19 16:24 Creatinine 0.8 mg/dL (0.7-1.2) 07/14/19 16:24 Estimated GFR > 60 ml/min 07/14/19 16:24 BUN/Creatinine Ratio 23 % 07/14/19 16:24 Glucose 115 mg/dL (65-100) H 07/14/19 16:24 POC Glucose 101 (70-105) 07/18/19 07:42 Hemoglobin A1c 6.4 % (4-6) H 07/14/19 16:24 Calcium 8.2 mg/dL (8.4-10.2) L 07/14/19 16:24 Total Bilirubin 0.50 mg/dL (0.1-1.2) 07/14/19 16:24 AST 40 units/L (5-40) 07/14/19 16:24 ALT 27 units/L (7-56) 07/14/19 16:24 Alkaline Phosphatase 61 units/L (35-129) 07/14/19 16:24 Total Protein 6.7 g/dL (6.3-8.2) 07/14/19 16:24 Albumin 3.6 g/dL (3.9-5) L 07/14/19 16:24 Albumin/Globulin Ratio 1.2 % 07/14/19 16:24 Triglycerides 73 mg/dL (2-149) 07/14/19 16:24 Cholesterol 110 mg/dL (50-199) 07/14/19 16:24 LDL Cholesterol Direct 51 mg/dL (50-130) 07/14/19 16:24 HDL Cholesterol 47 mg/dL (40-59) 07/14/19 16:24 Cholesterol/HDL Ratio 2.34 % 07/14/19 16:24 TSH 3.480 mlU/mL (0.270-4.200) 07/14/19 16:24 Urine Color Yellow (Yellow) 07/14/19 Unknown Urine Turbidity Clear (Clear) 07/14/19 Unknown Urine pH 6.0 (5.0-7.0) 07/14/19 Unknown Ur Specific [place] 1.015 (1.003-1.030) 07/14/19 Unknown Urine Protein <15 mg/dl mg/dL (Negative) 07/14/19 Unknown Urine Glucose (UA) Neg mg/dL (Negative) 07/14/19 Unknown Urine Ketones 20 mg/dL (Negative) 07/14/19 Unknown Urine Blood Sm (Negative) 07/14/19 Unknown Urine Nitrite Neg (Negative) 07/14/19 Unknown Urine Bilirubin Neg (Negative) 07/14/19 Unknown Urine Urobilinogen 2.0 mg/dL (<2.0) 07/14/19 Unknown Ur Leukocyte Esterase Neg (Negative) 07/14/19 Unknown Urine WBC (Auto) 49.0 /HPF (0.0-6.0) H 07/14/19 Unknown Urine RBC (Auto) 7.0 /HPF (0.0-6.0) 07/14/19 Unknown U Epithel Cells (Auto) 2.0 /HPF (0-13.0) 07/14/19 Unknown Urine Bacteria (Auto) 1+ /HPF (Negative) 07/14/19 Unknown Urine Mucus Few /HPF 07/14/19 Unknown Last Vital Signs Temp 99.0 F 07/17/19 19:44 Pulse 75 07/17/19 19:44 Resp 18 07/17/19 19:44 BP 111/53 07/17/19 19:44 Pulse Ox 96 07/17/19 19:44
[2019-07-18] MEDS: amLODIPine 5 MG TAB PO SCH (10:08)
[2019-07-18] MEDS: DIVALPROEX DR 250 MG TAB PO SCH ×2 (10:09→22:30)
[2019-07-18] MEDS: CITALOPRAM 20 MG TAB PO SCH (10:09)
[2019-07-18] MEDS: cephALEXin 500 MG CAP PO SCH (10:09)
[2019-07-18] MEDS: traZODone 50 MG TAB PO SCH (22:29)
[2019-07-18] MEDS: QUEtiapine 100 MG TAB PO SCH (22:30)
[2019-07-18] MEDS: QUEtiapine 200 MG TAB PO SCH (22:30)
[2019-07-19] MEDS: GABAPENTIN 300 MG CAP PO SCH ×3 (05:50→21:05)
--- NOTE | 2019-07-19 08:04 | Progress Note ---
Subjective Date of service: 07/19/19 Principal diagnosis: Schizoaffective disorder, Bpolar type Subjective Comment: I interviewed the patient this morning. Medical records reviewed and patient's progress was discussed with unit staff. Per Nursing note: Patient continues to be labile and hyperverbal today. She has multiple phone calls and made several to family members. Patient denies suicidal and homicidal ideations. Denies hallucinations. She was medication compliant and has good appetite. No apparent distress noted. Patient is talkative, tangential, disorganized and paranoid. She denies SI/HI/AVH Reason for continuing inpatient treatment: Patient is disorganized, paranoid and unable to care for self Review of Symptoms: Constitutional: Negative for weight loss ENT: Negative for stridor Respiratory: Negative for cough or hemoptysis All other systems reviewed and are negative MSE Appearance: Wearing appropriate clothing. Poor hygiene Behavior: Cooperative. Mood: "OK" Affect: Congruent with stated mood Thought Process: Goal directed Speech: decreased rate Thought Content: Paranoia Harmfulness Denies SI/HI Hallucinations: patient denies Consciousness: alert. Cognition/Memory: normal. Insight/Judgment: Limited. Assessment and Plan (1) Schizoaffective disorder, bipolar type Treatment Plan Due to the psychiatric conditions and treatment listed in the Assessment and Plan - the patient requires continued hospitalization. Will continue inpatient treatment to allow for medication adjustment and monitoring. Will continue q15 min safety checks. Will encourage the use of environmental modifications and non-pharmacologic approaches for the management of behavioral and psychological symptoms. Will continue current psych medications. Medication change made today: Increase Depakote DR to 500mg bid Monitor for medication side effects. The patient will continue on medications for physical illnesses, and Hospitalist will closely monitor these Continue intensive physical and occupational therapies. Monitor patient's mood, sleep, appetite, and behavior closely Encourage patient to participate in individual and group therapeutic sessions on the [place]. Will provide a safe and therapeutic environment for patient. ELOS 4 days Assessment and Plan - Patient Problems (1) Schizoaffective disorder, bipolar type Current Visit: Yes Status: Acute Medications and Allergies Allergies Allergy/AdvReac Type Severity Reaction Status Date / Time lisinopril AdvReac Unknown Verified 07/14/19 13:34 Home Medications Medication Instructions Recorded Confirmed Last Taken Type Celexa 40 mg PO DAILY 07/15/19 07/15/19 Unknown History Neurontin 600 mg PO TID 07/15/19 07/15/19 Unknown History Prilosec 20 mg PO DAILY 07/15/19 07/15/19 Unknown History SEROquel 300 mg PO QHS 07/15/19 07/15/19 Unknown History amLODIPine 5 mg PO DAILY 07/15/19 07/15/19 Unknown History metFORMIN 850 mg PO BID 07/15/19 07/15/19 Unknown History Active Meds: Active Medications Acetaminophen (Tylenol) 325 mg PO Q6H PRN PRN Reason: Pain, Mild (1-3) Amlodipine Besylate (Amlodipine) 5 mg PO QDAY [facility] Last Admin: 07/18/19 10:08 Dose: 5 mg Documented by: Citalopram Hydrobromide (Celexa) 40 mg PO QDAY [facility] Last Admin: 07/18/19 10:09 Dose: 40 mg Documented by: Divalproex Sodium (Depakote Dr) 250 mg PO BID [facility] Last Admin: 07/18/19 22:30 Dose: 250 mg Documented by: Gabapentin (Gabapentin) 600 mg PO Q8HR [facility] Last Admin: 07/19/19 05:50 Dose: 600 mg Documented by: Haloperidol Lactate (Haldol) 5 mg IM Q6H PRN PRN Reason: Agitation Lorazepam (Ativan) 1 mg IM Q6H PRN PRN Reason: Agitation Melatonin (Melatonin) 5 mg PO QHS PRN PRN Reason: Sleep Metformin HCl (Glucophage) 850 mg PO BIDDIAB [facility] Last Admin: 07/18/19 17:36 Dose: 850 mg Documented by: Quetiapine Fumarate (Seroquel) 200 mg PO QHS [facility] Last Admin: 07/18/19 22:30 Dose: 200 mg Documented by: Quetiapine Fumarate (Seroquel) 100 mg PO QHS [facility] Last Admin: 07/18/19 22:30 Dose: 100 mg Documented by: Trazodone HCl (Desyrel) 50 mg PO QHS [facility] Last Admin: 07/18/19 22:29 Dose: 50 mg Documented by: Results - Results Labs/Vitals: Laboratory Last Values WBC 7.1 K/mm3 (4.5-11.0) 07/14/19 16:24 RBC 3.78 M/mm3 (3.65-5.03) 07/14/19 16:24 Hgb 11.8 gm/dl (10.1-14.3) 07/14/19 16:24 Hct 36.1 % (30.3-42.9) 07/14/19 16:24 MCV 96 fl (79-97) 07/14/19 16:24 MCH 31 pg (28-32) 07/14/19 16:24 MCHC 33 % (30-34) 07/14/19 16:24 RDW 14.8 % (13.2-15.2) 07/14/19 16:24 Plt Count 351 K/mm3 (140-440) 07/14/19 16:24 Lymph % (Auto) 21.7 % (13.4-35.0) 07/14/19 16:24 [place] % (Auto) 5.3 % (0.0-7.3) 07/14/19 16:24 Eos % (Auto) 2.2 % (0.0-4.3) 07/14/19 16:24 Baso % (Auto) 0.9 % (0.0-1.8) 07/14/19 16:24 Lymph # 1.5 K/mm3 (1.2-5.4) 07/14/19 16:24 [place] # 0.4 K/mm3 (0.0-0.8) 07/14/19 16:24 Eos # 0.2 K/mm3 (0.0-0.4) 07/14/19 16:24 Baso # 0.1 K/mm3 (0.0-0.1) 07/14/19 16:24 Seg Neutrophils % 69.9 % (40.0-70.0) 07/14/19 16:24 Seg Neutrophils # 5.0 K/mm3 (1.8-7.7) 07/14/19 16:24 Sodium 142 mmol/L (137-145) 07/14/19 16:24 Potassium 3.1 mmol/L (3.6-5.0) L 07/14/19 16:24 Chloride 100.9 mmol/L (98-107) 07/14/19 16:24 Carbon Dioxide 22 mmol/L (22-30) 07/14/19 16:24 Anion Gap 22 mmol/L 07/14/19 16:24 BUN 18 mg/dL (7-17) H 07/14/19 16:24 Creatinine 0.8 mg/dL (0.7-1.2) 07/14/19 16:24 Estimated GFR > 60 ml/min 07/14/19 16:24 BUN/Creatinine Ratio 23 % 07/14/19 16:24 Glucose 115 mg/dL (65-100) H 07/14/19 16:24 POC Glucose 88 (70-105) 07/19/19 07:55 Hemoglobin A1c 6.4 % (4-6) H 07/14/19 16:24 Calcium 8.2 mg/dL (8.4-10.2) L 07/14/19 16:24 Total Bilirubin 0.50 mg/dL (0.1-1.2) 07/14/19 16:24 AST 40 units/L (5-40) 07/14/19 16:24 ALT 27 units/L (7-56) 07/14/19 16:24 Alkaline Phosphatase 61 units/L (35-129) 07/14/19 16:24 Total Protein 6.7 g/dL (6.3-8.2) 07/14/19 16:24 Albumin 3.6 g/dL (3.9-5) L 07/14/19 16:24 Albumin/Globulin Ratio 1.2 % 07/14/19 16:24 Triglycerides 73 mg/dL (2-149) 07/14/19 16:24 Cholesterol 110 mg/dL (50-199) 07/14/19 16:24 LDL Cholesterol Direct 51 mg/dL (50-130) 07/14/19 16:24 HDL Cholesterol 47 mg/dL (40-59) 07/14/19 16:24 Cholesterol/HDL Ratio 2.34 % 07/14/19 16:24 TSH 3.480 mlU/mL (0.270-4.200) 07/14/19 16:24 Urine Color Yellow (Yellow) 07/14/19 Unknown Urine Turbidity Clear (Clear) 07/14/19 Unknown Urine pH 6.0 (5.0-7.0) 07/14/19 Unknown Ur Specific [place] 1.015 (1.003-1.030) 07/14/19 Unknown Urine Protein <15 mg/dl mg/dL (Negative) 07/14/19 Unknown Urine Glucose (UA) Neg mg/dL (Negative) 07/14/19 Unknown Urine Ketones 20 mg/dL (Negative) 07/14/19 Unknown Urine Blood Sm (Negative) 07/14/19 Unknown Urine Nitrite Neg (Negative) 07/14/19 Unknown Urine Bilirubin Neg (Negative) 07/14/19 Unknown Urine Urobilinogen 2.0 mg/dL (<2.0) 07/14/19 Unknown Ur Leukocyte Esterase Neg (Negative) 07/14/19 Unknown Urine WBC (Auto) 49.0 /HPF (0.0-6.0) H 07/14/19 Unknown Urine RBC (Auto) 7.0 /HPF (0.0-6.0) 07/14/19 Unknown U Epithel Cells (Auto) 2.0 /HPF (0-13.0) 07/14/19 Unknown Urine Bacteria (Auto) 1+ /HPF (Negative) 07/14/19 Unknown Urine Mucus Few /HPF 07/14/19 Unknown Last Vital Signs Temp 98.3 F 07/18/19 19:46 Pulse 73 07/18/19 19:46 Resp 18 07/18/19 19:46 BP 116/65 07/18/19 19:46 Pulse Ox 98 07/18/19 19:46
[2019-07-19] MEDS: amLODIPine 5 MG TAB PO SCH (10:35)
[2019-07-19] MEDS: CITALOPRAM 20 MG TAB PO SCH (10:35)
[2019-07-19] MEDS: metFORMIN 850 MG TAB PO SCH ×2 (10:36→17:46)
[2019-07-19] MEDS: DIVALPROEX DR 250 MG TAB PO SCH ×2 (10:36→21:05)
[2019-07-19] MEDS: PANTOPRAZOLE 20 MG TAB PO SCH (14:47)
[2019-07-19] MEDS: traZODone 50 MG TAB PO SCH (21:05)
[2019-07-19] MEDS: QUEtiapine 200 MG TAB PO SCH (21:05)
[2019-07-19] MEDS: QUEtiapine 100 MG TAB PO SCH (21:05)
[2019-07-20] MEDS: GABAPENTIN 300 MG CAP PO SCH ×3 (06:01→21:19)
[2019-07-20] MEDS ORDERED: LIP THERAPY VASELINE TP PRN (09:02)
--- NOTE | 2019-07-20 09:06 | Progress Note ---
Subjective Date of service: 07/20/19 Principal diagnosis: Schizoaffective disorder, Bpolar type Subjective Comment: Patient continues to be talkative, tangential, disorganized and paranoid. She denies SI/HI/AVH. She is medication compliant and denies side effect. She sleeps well and she has good appetite. Reason for continuing inpatient treatment: Patient is disorganized, paranoid and unable to care for self Review of Symptoms: Constitutional: Negative for weight loss ENT: Negative for stridor Respiratory: Negative for cough or hemoptysis All other systems reviewed and are negative MSE Appearance: Wearing appropriate clothing. Poor hygiene Behavior: Cooperative. Mood: "OK" Affect: Congruent with stated mood Thought Process: Goal directed Speech: decreased rate Thought Content: Paranoia Harmfulness Denies SI/HI Hallucinations: patient denies Consciousness: alert. Cognition/Memory: normal. Insight/Judgment: Limited. Assessment and Plan (1) Schizoaffective disorder, bipolar type Treatment Plan Due to the psychiatric conditions and treatment listed in the Assessment and Plan - the patient requires continued hospitalization. Will continue inpatient treatment to allow for medication adjustment and monitoring. Will continue q15 min safety checks. Will encourage the use of environmental modifications and non-pharmacologic approaches for the management of behavioral and psychological symptoms. Will continue current psych medications. Medication change made today: Increase Depakote DR to 500mg tid and Seroquel to 200mg bid Monitor for medication side effects. The patient will continue on medications for physical illnesses, and Hospitalist will closely monitor these Continue intensive physical and occupational therapies. Monitor patient's mood, sleep, appetite, and behavior closely Encourage patient to participate in individual and group therapeutic sessions on the [place]. Will provide a safe and therapeutic environment for patient. LEANNEOS 4 days Assessment and Plan - Patient Problems (1) Schizoaffective disorder, bipolar type Current Visit: Yes Status: Acute Medications and Allergies Allergies Allergy/AdvReac Type Severity Reaction Status Date / Time lisinopril AdvReac Unknown Verified 07/14/19 13:34 Home Medications Medication Instructions Recorded Confirmed Last Taken Type Celexa 40 mg PO DAILY 07/15/19 07/15/19 Unknown History Neurontin 600 mg PO TID 07/15/19 07/15/19 Unknown History Prilosec 20 mg PO DAILY 07/15/19 07/15/19 Unknown History SEROquel 300 mg PO QHS 07/15/19 07/15/19 Unknown History amLODIPine 5 mg PO DAILY 07/15/19 07/15/19 Unknown History metFORMIN 850 mg PO BID 07/15/19 07/15/19 Unknown History Active Meds: Active Medications Acetaminophen (Tylenol) 325 mg PO Q6H PRN PRN Reason: Pain, Mild (1-3) Amlodipine Besylate (Amlodipine) 5 mg PO QDAY [facility] Last Admin: 07/19/19 10:35 Dose: 5 mg Documented by: Aspirin (Halfprin Ec) 81 mg PO QDAY [facility] Citalopram Hydrobromide (Celexa) 40 mg PO QDAY [facility] Last Admin: 07/19/19 10:35 Dose: 40 mg Documented by: Divalproex Sodium (Depakote Dr) 500 mg PO BID [facility] Last Admin: 07/19/19 21:05 Dose: 500 mg Documented by: Gabapentin (Gabapentin) 600 mg PO Q8HR [facility] Last Admin: 07/20/19 06:01 Dose: 600 mg Documented by: Haloperidol Lactate (Haldol) 5 mg IM Q6H PRN PRN Reason: Agitation Lorazepam (Ativan) 1 mg IM Q6H PRN PRN Reason: Agitation Melatonin (Melatonin) 5 mg PO QHS PRN PRN Reason: Sleep Metformin HCl (Glucophage) 850 mg PO BIDDIAB [facility] Last Admin: 07/19/19 17:46 Dose: 850 mg Documented by: Pantoprazole Sodium (Protonix) 20 mg PO QDAY [facility] Last Admin: 07/19/19 14:47 Dose: 20 mg Documented by: Quetiapine Fumarate (Seroquel) 200 mg PO QHS [facility] Last Admin: 07/19/19 21:05 Dose: 200 mg Documented by: Quetiapine Fumarate (Seroquel) 100 mg PO QHS [facility] Last Admin: 07/19/19 21:05 Dose: 100 mg Documented by: Trazodone HCl (Desyrel) 50 mg PO QHS [facility] Last Admin: 07/19/19 21:05 Dose: 50 mg Documented by: Results - Results Labs/Vitals: Laboratory Last Values WBC 7.1 K/mm3 (4.5-11.0) 07/14/19 16:24 RBC 3.78 M/mm3 (3.65-5.03) 07/14/19 16:24 Hgb 11.8 gm/dl (10.1-14.3) 07/14/19 16:24 Hct 36.1 % (30.3-42.9) 07/14/19 16:24 MCV 96 fl (79-97) 07/14/19 16:24 MCH 31 pg (28-32) 07/14/19 16:24 MCHC 33 % (30-34) 07/14/19 16:24 RDW 14.8 % (13.2-15.2) 07/14/19 16:24 Plt Count 351 K/mm3 (140-440) 07/14/19 16:24 Lymph % (Auto) 21.7 % (13.4-35.0) 07/14/19 16:24 [place] % (Auto) 5.3 % (0.0-7.3) 07/14/19 16:24 Eos % (Auto) 2.2 % (0.0-4.3) 07/14/19 16:24 Baso % (Auto) 0.9 % (0.0-1.8) 07/14/19 16:24 Lymph # 1.5 K/mm3 (1.2-5.4) 07/14/19 16:24 [place] # 0.4 K/mm3 (0.0-0.8) 07/14/19 16:24 Eos # 0.2 K/mm3 (0.0-0.4) 07/14/19 16:24 Baso # 0.1 K/mm3 (0.0-0.1) 07/14/19 16:24 Seg Neutrophils % 69.9 % (40.0-70.0) 07/14/19 16:24 Seg Neutrophils # 5.0 K/mm3 (1.8-7.7) 07/14/19 16:24 Sodium 142 mmol/L (137-145) 07/14/19 16:24 Potassium 3.1 mmol/L (3.6-5.0) L 07/14/19 16:24 Chloride 100.9 mmol/L (98-107) 07/14/19 16:24 Carbon Dioxide 22 mmol/L (22-30) 07/14/19 16:24 Anion Gap 22 mmol/L 07/14/19 16:24 BUN 18 mg/dL (7-17) H 07/14/19 16:24 Creatinine 0.8 mg/dL (0.7-1.2) 07/14/19 16:24 Estimated GFR > 60 ml/min 07/14/19 16:24 BUN/Creatinine Ratio 23 % 07/14/19 16:24 Glucose 115 mg/dL (65-100) H 07/14/19 16:24 POC Glucose 89 (70-105) 07/20/19 06:44 Hemoglobin A1c 6.4 % (4-6) H 07/14/19 16:24 Calcium 8.2 mg/dL (8.4-10.2) L 07/14/19 16:24 Total Bilirubin 0.50 mg/dL (0.1-1.2) 07/14/19 16:24 AST 40 units/L (5-40) 07/14/19 16:24 ALT 27 units/L (7-56) 07/14/19 16:24 Alkaline Phosphatase 61 units/L (35-129) 07/14/19 16:24 Total Protein 6.7 g/dL (6.3-8.2) 07/14/19 16:24 Albumin 3.6 g/dL (3.9-5) L 07/14/19 16:24 Albumin/Globulin Ratio 1.2 % 07/14/19 16:24 Triglycerides 73 mg/dL (2-149) 07/14/19 16:24 Cholesterol 110 mg/dL (50-199) 07/14/19 16:24 LDL Cholesterol Direct 51 mg/dL (50-130) 07/14/19 16:24 HDL Cholesterol 47 mg/dL (40-59) 07/14/19 16:24 Cholesterol/HDL Ratio 2.34 % 07/14/19 16:24 TSH 3.480 mlU/mL (0.270-4.200) 07/14/19 16:24 Urine Color Yellow (Yellow) 07/14/19 Unknown Urine Turbidity Clear (Clear) 07/14/19 Unknown Urine pH 6.0 (5.0-7.0) 07/14/19 Unknown Ur Specific [place] 1.015 (1.003-1.030) 07/14/19 Unknown Urine Protein <15 mg/dl mg/dL (Negative) 07/14/19 Unknown Urine Glucose (UA) Neg mg/dL (Negative) 07/14/19 Unknown Urine Ketones 20 mg/dL (Negative) 07/14/19 Unknown Urine Blood Sm (Negative) 07/14/19 Unknown Urine Nitrite Neg (Negative) 07/14/19 Unknown Urine Bilirubin Neg (Negative) 07/14/19 Unknown Urine Urobilinogen 2.0 mg/dL (<2.0) 07/14/19 Unknown Ur Leukocyte Esterase Neg (Negative) 07/14/19 Unknown Urine WBC (Auto) 49.0 /HPF (0.0-6.0) H 07/14/19 Unknown Urine RBC (Auto) 7.0 /HPF (0.0-6.0) 07/14/19 Unknown U Epithel Cells (Auto) 2.0 /HPF (0-13.0) 07/14/19 Unknown Urine Bacteria (Auto) 1+ /HPF (Negative) 07/14/19 Unknown Urine Mucus Few /HPF 07/14/19 Unknown Last Vital Signs Temp 97.6 F 07/20/19 07:42 Pulse 62 07/20/19 07:42 Resp 18 07/20/19 07:42 BP 95/65 07/20/19 07:42 Pulse Ox 99 07/20/19 07:42
[2019-07-20] MEDS: ASPIRIN EC 81 MG TAB PO SCH (09:12)
[2019-07-20] MEDS: PANTOPRAZOLE 20 MG TAB PO SCH (09:12)
[2019-07-20] MEDS: CITALOPRAM 20 MG TAB PO SCH (09:13)
[2019-07-20] MEDS: metFORMIN 850 MG TAB PO SCH ×2 (09:13→18:12)
[2019-07-20] MEDS: amLODIPine 5 MG TAB PO SCH (09:14)
[2019-07-20] MEDS: QUEtiapine 200 MG TAB PO SCH ×2 (09:38→21:19)
[2019-07-20] MEDS: DIVALPROEX DR 250 MG TAB PO SCH ×2 (13:14→21:20)
[2019-07-20] MEDS: traZODone 50 MG TAB PO SCH (21:19)
[2019-07-21] MEDS: GABAPENTIN 300 MG CAP PO SCH ×3 (06:02→21:26)
[2019-07-21] MEDS: metFORMIN 850 MG TAB PO SCH ×2 (09:09→17:16)
[2019-07-21] MEDS: ASPIRIN EC 81 MG TAB PO SCH (09:09)
[2019-07-21] MEDS: QUEtiapine 200 MG TAB PO SCH ×2 (09:11→21:26)
[2019-07-21] MEDS: CITALOPRAM 20 MG TAB PO SCH (09:11)
[2019-07-21] MEDS: DIVALPROEX DR 250 MG TAB PO SCH ×3 (09:11→21:47)
[2019-07-21] MEDS: PANTOPRAZOLE 20 MG TAB PO SCH (09:11)
[2019-07-21] MEDS: amLODIPine 5 MG TAB PO SCH (09:13)
--- NOTE | 2019-07-21 09:42 | Progress Note ---
Subjective Date of service: 07/21/19 Principal diagnosis: Schizoaffective disorder, Bpolar type Subjective Comment: No significant improvement. Per Collateral information obtained by the Switchboard And Control Room Operator, she is non-compliant with treatment, she is a hoarder. SW called the pharmacy and confirmed PT has been on the following medications since 2016 and the last time she filled them was as follows: Seroquel 300MG per night filled for 90 day supply on 04/13/19 Celexa 40 MG daily filled for 90 day supply on 06/13 Gabapentin 600 MG 3X times a day - filled on 06/23/19 for 30 day supply Chlorthalidone 25 MG per day - filled on 06/01/19 for 90 day supply Omeprazole 40MG daily filled on 06/01/19 for 30 day supply Metformin 850MG 2x times per day - filled for 90 day supply on 04/13/19 Patient continues to be talkative, tangential, disorganized and paranoid. She denies SI/HI/AVH. She is medication compliant and denies side effect. She sleeps well and she has good appetite. Reason for continuing inpatient treatment: Patient is disorganized, paranoid and unable to care for self Review of Symptoms: Constitutional: Negative for weight loss ENT: Negative for stridor Respiratory: Negative for cough or hemoptysis All other systems reviewed and are negative MSE Appearance: Wearing appropriate clothing. Poor hygiene Behavior: Cooperative. Mood: "OK" Affect: Congruent with stated mood Thought Process: Goal directed Speech: decreased rate Thought Content: Paranoia Harmfulness Denies SI/HI Hallucinations: patient denies Consciousness: alert. Cognition/Memory: normal. Insight/Judgment: Limited. Assessment and Plan (1) Schizoaffective disorder, bipolar type Treatment Plan Due to the psychiatric conditions and treatment listed in the Assessment and Plan - the patient requires continued hospitalization. Will continue inpatient treatment to allow for medication adjustment and monitoring. Will continue q15 min safety checks. Will encourage the use of environmental modifications and non-pharmacologic approaches for the management of behavioral and psychological symptoms. Will continue current psych medications. Medication change made today: Will start Risperidone 0.5mg bid with a plan to transition to Invega Sustenna to ensure compliance consultant for medication side effects. The patient will continue on medications for physical illnesses, and Hospitalist will closely monitor these Continue intensive physical and occupational therapies. Monitor patient's mood, sleep, appetite, and behavior closely Encourage patient to participate in individual and group therapeutic sessions on the [place]. Will provide a safe and therapeutic environment for patient. ELOS 7 days Assessment and Plan - Patient Problems (1) Schizoaffective disorder, bipolar type Current Visit: Yes Status: Acute Medications and Allergies Allergies Allergy/AdvReac Type Severity Reaction Status Date / Time lisinopril AdvReac Unknown Verified 07/14/19 13:34 Home Medications Medication Instructions Recorded Confirmed Last Taken Type Celexa 40 mg PO DAILY 07/15/19 07/15/19 Unknown History Neurontin 600 mg PO TID 07/15/19 07/15/19 Unknown History Prilosec 20 mg PO DAILY 07/15/19 07/15/19 Unknown History SEROquel 300 mg PO QHS 07/15/19 07/15/19 Unknown History amLODIPine 5 mg PO DAILY 07/15/19 07/15/19 Unknown History metFORMIN 850 mg PO BID 07/15/19 07/15/19 Unknown History Active Meds: Active Medications Acetaminophen (Tylenol) 325 mg PO Q6H PRN PRN Reason: Pain, Mild (1-3) Last Admin: 07/20/19 09:14 Dose: 325 mg Documented by: Amlodipine Besylate (Amlodipine) 5 mg PO QDAY [facility] Last Admin: 07/21/19 09:13 Dose: 5 mg Documented by: Aspirin (Halfprin Ec) 81 mg PO QDAY [facility] Last Admin: 07/21/19 09:09 Dose: 81 mg Documented by: Citalopram Hydrobromide (Celexa) 40 mg PO QDAY [facility] Last Admin: 07/21/19 09:11 Dose: 40 mg Documented by: Divalproex Sodium (Depakote Dr) 500 mg PO TID [facility] Last Admin: 07/21/19 09:11 Dose: 500 mg Documented by: Gabapentin (Gabapentin) 600 mg PO Q8HR [facility] Last Admin: 07/21/19 06:02 Dose: 600 mg Documented by: Haloperidol Lactate (Haldol) 5 mg IM Q6H PRN PRN Reason: Agitation Hydrophilic Ointment (Vaseline Lip Therapy) 1 applic TP DIRECT PRN PRN Reason: Dry Lips Lorazepam (Ativan) 1 mg IM Q6H PRN PRN Reason: Agitation Melatonin (Melatonin) 5 mg PO QHS PRN PRN Reason: Sleep Metformin HCl (Glucophage) 850 mg PO BIDDIAB [facility] Last Admin: 07/21/19 09:09 Dose: 850 mg Documented by: Pantoprazole Sodium (Protonix) 20 mg PO QDAY [facility] Last Admin: 07/21/19 09:11 Dose: 20 mg Documented by: Quetiapine Fumarate (Seroquel) 200 mg PO BID [facility] Last Admin: 07/21/19 09:11 Dose: 200 mg Documented by: Trazodone HCl (Desyrel) 50 mg PO QHS [facility] Last Admin: 07/20/19 21:19 Dose: 50 mg Documented by: Results - Results Labs/Vitals: Laboratory Last Values WBC 7.1 K/mm3 (4.5-11.0) 07/14/19 16:24 RBC 3.78 M/mm3 (3.65-5.03) 07/14/19 16:24 Hgb 11.8 gm/dl (10.1-14.3) 07/14/19 16:24 Hct 36.1 % (30.3-42.9) 07/14/19 16:24 MCV 96 fl (79-97) 07/14/19 16:24 MCH 31 pg (28-32) 07/14/19 16:24 MCHC 33 % (30-34) 07/14/19 16:24 RDW 14.8 % (13.2-15.2) 07/14/19 16:24 Plt Count 351 K/mm3 (140-440) 07/14/19 16:24 Lymph % (Auto) 21.7 % (13.4-35.0) 07/14/19 16:24 [place] % (Auto) 5.3 % (0.0-7.3) 07/14/19 16:24 Eos % (Auto) 2.2 % (0.0-4.3) 07/14/19 16:24 Baso % (Auto) 0.9 % (0.0-1.8) 07/14/19 16:24 Lymph # 1.5 K/mm3 (1.2-5.4) 07/14/19 16:24 [place] # 0.4 K/mm3 (0.0-0.8) 07/14/19 16:24 Eos # 0.2 K/mm3 (0.0-0.4) 07/14/19 16:24 Baso # 0.1 K/mm3 (0.0-0.1) 07/14/19 16:24 Seg Neutrophils % 69.9 % (40.0-70.0) 07/14/19 16:24 Seg Neutrophils # 5.0 K/mm3 (1.8-7.7) 07/14/19 16:24 Sodium 142 mmol/L (137-145) 07/14/19 16:24 Potassium 3.1 mmol/L (3.6-5.0) L 07/14/19 16:24 Chloride 100.9 mmol/L (98-107) 07/14/19 16:24 Carbon Dioxide 22 mmol/L (22-30) 07/14/19 16:24 Anion Gap 22 mmol/L 07/14/19 16:24 BUN 18 mg/dL (7-17) H 07/14/19 16:24 Creatinine 0.8 mg/dL (0.7-1.2) 07/14/19 16:24 Estimated GFR > 60 ml/min 07/14/19 16:24 BUN/Creatinine Ratio 23 % 07/14/19 16:24 Glucose 115 mg/dL (65-100) H 07/14/19 16:24 POC Glucose 80 (70-105) 07/21/19 08:08 Hemoglobin A1c 6.4 % (4-6) H 07/14/19 16:24 Calcium 8.2 mg/dL (8.4-10.2) L 07/14/19 16:24 Total Bilirubin 0.50 mg/dL (0.1-1.2) 07/14/19 16:24 AST 40 units/L (5-40) 07/14/19 16:24 ALT 27 units/L (7-56) 07/14/19 16:24 Alkaline Phosphatase 61 units/L (35-129) 07/14/19 16:24 Total Protein 6.7 g/dL (6.3-8.2) 07/14/19 16:24 Albumin 3.6 g/dL (3.9-5) L 07/14/19 16:24 Albumin/Globulin Ratio 1.2 % 07/14/19 16:24 Triglycerides 73 mg/dL (2-149) 07/14/19 16:24 Cholesterol 110 mg/dL (50-199) 07/14/19 16:24 LDL Cholesterol Direct 51 mg/dL (50-130) 07/14/19 16:24 HDL Cholesterol 47 mg/dL (40-59) 07/14/19 16:24 Cholesterol/HDL Ratio 2.34 % 07/14/19 16:24 TSH 3.480 mlU/mL (0.270-4.200) 07/14/19 16:24 Urine Color Yellow (Yellow) 07/14/19 Unknown Urine Turbidity Clear (Clear) 07/14/19 Unknown Urine pH 6.0 (5.0-7.0) 07/14/19 Unknown Ur Specific [place] 1.015 (1.003-1.030) 07/14/19 Unknown Urine Protein <15 mg/dl mg/dL (Negative) 07/14/19 Unknown Urine Glucose (UA) Neg mg/dL (Negative) 07/14/19 Unknown Urine Ketones 20 mg/dL (Negative) 07/14/19 Unknown Urine Blood Sm (Negative) 07/14/19 Unknown Urine Nitrite Neg (Negative) 07/14/19 Unknown Urine Bilirubin Neg (Negative) 07/14/19 Unknown Urine Urobilinogen 2.0 mg/dL (<2.0) 07/14/19 Unknown Ur Leukocyte Esterase Neg (Negative) 07/14/19 Unknown Urine WBC (Auto) 49.0 /HPF (0.0-6.0) H 07/14/19 Unknown Urine RBC (Auto) 7.0 /HPF (0.0-6.0) 07/14/19 Unknown U Epithel Cells (Auto) 2.0 /HPF (0-13.0) 07/14/19 Unknown Urine Bacteria (Auto) 1+ /HPF (Negative) 07/14/19 Unknown Urine Mucus Few /HPF 07/14/19 Unknown Last Vital Signs Temp 97.5 F L 07/21/19 07:31 Pulse 61 07/21/19 09:13 Resp 18 07/21/19 07:31 BP 112/60 07/21/19 09:13 Pulse Ox 96 07/21/19 07:31
[2019-07-21] MEDS: risperiDONE 0.25 MG TAB PO SCH ×3 (10:31→21:26)
[2019-07-21] MEDS: traZODone 50 MG TAB PO SCH (21:26)
[2019-07-21] MEDS ORDERED: DIVALPROEX DR 125 MG TAB ONE (21:32)
[2019-07-22] MEDS: GABAPENTIN 300 MG CAP PO SCH ×3 (05:54→21:44)
[2019-07-22] MEDS ORDERED: risperiDONE 0.25 MG TAB PO SCH (07:53)
--- NOTE | 2019-07-22 07:53 | Progress Note ---
Subjective Date of service: 07/22/19 Principal diagnosis: Schizoaffective disorder, Bpolar type Subjective Comment: Patient continues to be talkative, tangential, disorganized and paranoid. She denies SI/HI/AVH. She is medication compliant and denies side effect. She sleeps well and she has good appetite. Reason for continuing inpatient treatment: Patient is disorganized, paranoid and unable to care for self Review of Symptoms: Constitutional: Negative for weight loss ENT: Negative for stridor Respiratory: Negative for cough or hemoptysis All other systems reviewed and are negative MSE Appearance: Wearing appropriate clothing. Poor hygiene Behavior: Cooperative. Mood: "OK" Affect: Congruent with stated mood Thought Process: Goal directed Speech: decreased rate Thought Content: Paranoia Harmfulness Denies SI/HI Hallucinations: patient denies Consciousness: alert. Cognition/Memory: normal. Insight/Judgment: Limited. Assessment and Plan (1) Schizoaffective disorder, bipolar type Treatment Plan Due to the psychiatric conditions and treatment listed in the Assessment and Plan - the patient requires continued hospitalization. Will continue inpatient treatment to allow for medication adjustment and monitoring. Will continue q15 min safety checks. Will encourage the use of environmental modifications and non-pharmacologic approaches for the management of behavioral and psychological symptoms. Will continue current psych medications. Medication change made today: Will increase Risperidone to 1mg bid with a plan to transition to Invega Sustenna to ensure vp compliance for medication side effects. The patient will continue on medications for physical illnesses, and Hospitalist will closely monitor these Continue intensive physical and occupational therapies. Monitor patient's mood, sleep, appetite, and behavior closely Encourage patient to participate in individual and group therapeutic sessions on the [place]. Will provide a safe and therapeutic environment for patient. ELOS 7 days Assessment and Plan - Patient Problems (1) Schizoaffective disorder, bipolar type Current Visit: Yes Status: Acute Medications and Allergies Allergies Allergy/AdvReac Type Severity Reaction Status Date / Time lisinopril AdvReac Unknown Verified 07/14/19 13:34 Home Medications Medication Instructions Recorded Confirmed Last Taken Type Celexa 40 mg PO DAILY 07/15/19 07/15/19 Unknown History Neurontin 600 mg PO TID 07/15/19 07/15/19 Unknown History Prilosec 20 mg PO DAILY 07/15/19 07/15/19 Unknown History SEROquel 300 mg PO QHS 07/15/19 07/15/19 Unknown History amLODIPine 5 mg PO DAILY 07/15/19 07/15/19 Unknown History metFORMIN 850 mg PO BID 07/15/19 07/15/19 Unknown History Active Meds: Active Medications Acetaminophen (Tylenol) 325 mg PO Q6H PRN PRN Reason: Pain, Mild (1-3) Last Admin: 07/20/19 09:14 Dose: 325 mg Documented by: Amlodipine Besylate (Amlodipine) 5 mg PO QDAY [facility] Last Admin: 07/21/19 09:13 Dose: 5 mg Documented by: Aspirin (Halfprin Ec) 81 mg PO QDAY [facility] Last Admin: 07/21/19 09:09 Dose: 81 mg Documented by: Citalopram Hydrobromide (Celexa) 40 mg PO QDAY [facility] Last Admin: 07/21/19 09:11 Dose: 40 mg Documented by: Divalproex Sodium (Depakote Dr) 500 mg PO TID [facility] Last Admin: 07/21/19 21:47 Dose: 500 mg Documented by: Gabapentin (Gabapentin) 600 mg PO Q8HR [facility] Last Admin: 07/22/19 05:54 Dose: 600 mg Documented by: Haloperidol Lactate (Haldol) 5 mg IM Q6H PRN PRN Reason: Agitation Hydrophilic Ointment (Vaseline Lip Therapy) 1 applic TP DIRECT PRN PRN Reason: Dry Lips Lorazepam (Ativan) 1 mg IM Q6H PRN PRN Reason: Agitation Melatonin (Melatonin) 5 mg PO QHS PRN PRN Reason: Sleep Metformin HCl (Glucophage) 850 mg PO BIDDIAB [facility] Last Admin: 07/21/19 17:16 Dose: 850 mg Documented by: Pantoprazole Sodium (Protonix) 20 mg PO QDAY [facility] Last Admin: 07/21/19 09:11 Dose: 20 mg Documented by: Quetiapine Fumarate (Seroquel) 200 mg PO BID [facility] Last Admin: 07/21/19 21:26 Dose: 200 mg Documented by: Risperidone (Risperdal) 0.5 mg PO BID [facility] Last Admin: 07/21/19 21:26 Dose: 0.5 mg Documented by: Trazodone HCl (Desyrel) 50 mg PO QHS [facility] Last Admin: 07/21/19 21:26 Dose: 50 mg Documented by: Results - Results Labs/Vitals: Laboratory Last Values WBC 7.1 K/mm3 (4.5-11.0) 07/14/19 16: RBC 3.78 M/mm3 (3.65-5.03) 07/14/19 16: Hgb 11.8 gm/dl (10.1-14.3) 07/14/19 16:24 Hct 36.1 % (30.3-42.9) 07/14/19 16: MCV 96 fl (79-97) 07/14/19 16: MCH 31 pg (28-32) 07/14/19 16: MCHC 33 % (30-34) 07/14/19 16: RDW 14.8 % (13.2-15.2) 07/14/19: Plt Count 351 K/mm3 (140-440) 07/14/19 16: Lymph % (Auto) 21.7 % (13.4-35.0) 07/14/19: [place] % (Auto) 5.3 % (0.0-7.3) 07/14/19 16: Eos % (Auto) 2.2 % (0.0-4.3) 07/14/19 16: Baso % (Auto) 0.9 % (0.0-1.8) 07/14/19: Lymph # 1.5 K/mm3 (1.2-5.4) 07/14/19 16: [place] # 0.4 K/mm3 (0.0-0.8) 07/14/19: Eos # 0.2 K/mm3 (0.0-0.4) 07/14/19 16: Baso # 0.1 K/mm3 (0.0-0.1) 07/14/19 16: Seg Neutrophils % 69.9 % (40.0-70.0) 07/14/19 16: Seg Neutrophils # 5.0 K/mm3 (1.8-7.7) 07/14/19 16:24 Sodium 142 mmol/L (137-145) 07/14/19 16:24 Potassium 3.1 mmol/L (3.6-5.0) L 07/14/19 16: Chloride 100.9 mmol/L (98-107) 07/14/19 16:24 Carbon Dioxide 22 mmol/L (22-30) 07/14/19 16:24 Anion Gap 22 mmol/L 07/14/19 16:24 BUN 18 mg/dL (7-17) H 07/14/19 16:24 Creatinine 0.8 mg/dL (0.7-1.2) 07/14/19 16:24 Estimated GFR > 60 ml/min 07/14/19 16:24 BUN/Creatinine Ratio 23 % 07/14/19 16:24 Glucose 115 mg/dL (65-100) H 07/14/19 16:24 POC Glucose 75 (70-105) 07/21/19 11:23 Hemoglobin A1c 6.4 % (4-6) H 07/14/19 16:24 Calcium 8.2 mg/dL (8.4-10.2) L 07/14/19 16:24 Total Bilirubin 0.50 mg/dL (0.1-1.2) 07/14/19 16:24 AST 40 units/L (5-40) 07/14/19 16:24 ALT 27 units/L (7-56) 07/14/19 16:24 Alkaline Phosphatase 61 units/L (35-129) 07/14/19 16:24 Total Protein 6.7 g/dL (6.3-8.2) 07/14/19 16:24 Albumin 3.6 g/dL (3.9-5) L 07/14/19 16:24 Albumin/Globulin Ratio 1.2 % 07/14/19 16:24 Triglycerides 73 mg/dL (2-149) 07/14/19 16:24 Cholesterol 110 mg/dL (50-199) 07/14/19 16:24 LDL Cholesterol Direct 51 mg/dL (50-130) 07/14/19 16:24 HDL Cholesterol 47 mg/dL (40-59) 07/14/19 16:24 Cholesterol/HDL Ratio 2.34 % 07/14/19 16:24 TSH 3.480 mlU/mL (0.270-4.200) 07/14/19 16:24 Urine Color Yellow (Yellow) 07/14/19 Unknown Urine Turbidity Clear (Clear) 07/14/19 Unknown Urine pH 6.0 (5.0-7.0) 07/14/19 Unknown Ur Specific [place] 1.015 (1.003-1.030) 07/14/19 Unknown Urine Protein <15 mg/dl mg/dL (Negative) 07/14/19 Unknown Urine Glucose (UA) Neg mg/dL (Negative) 07/14/19 Unknown Urine Ketones 20 mg/dL (Negative) 07/14/19 Unknown Urine Blood Sm (Negative) 07/14/19 Unknown Urine Nitrite Neg (Negative) 07/14/19 Unknown Urine Bilirubin Neg (Negative) 07/14/19 Unknown Urine Urobilinogen 2.0 mg/dL (<2.0) 07/14/19 Unknown Ur Leukocyte Esterase Neg (Negative) 07/14/19 Unknown Urine WBC (Auto) 49.0 /HPF (0.0-6.0) H 07/14/19 Unknown Urine RBC (Auto) 7.0 /HPF (0.0-6.0) 07/14/19 Unknown U Epithel Cells (Auto) 2.0 /HPF (0-13.0) 07/14/19 Unknown Urine Bacteria (Auto) 1+ /HPF (Negative) 07/14/19 Unknown Urine Mucus Few /HPF 07/14/19 Unknown Last Vital Signs Temp 97.3 F L 07/21/19 22:00 Pulse 61 07/21/19 22:00 Resp 17 07/21/19 22:00 BP 136/59 07/21/19 22:00 Pulse Ox 98 07/21/19 22:00
[2019-07-22] MEDS: ASPIRIN EC 81 MG TAB PO SCH (10:01)
[2019-07-22] MEDS: PANTOPRAZOLE 20 MG TAB PO SCH (10:01)
[2019-07-22] MEDS: metFORMIN 850 MG TAB PO SCH ×2 (10:01→18:00)
[2019-07-22] MEDS: CITALOPRAM 20 MG TAB PO SCH (10:01)
[2019-07-22] MEDS: risperiDONE 1 MG TAB PO SCH ×2 (10:04→21:45)
[2019-07-22] MEDS: QUEtiapine 200 MG TAB PO SCH ×2 (10:04→21:45)
[2019-07-22] MEDS: DIVALPROEX DR 250 MG TAB PO SCH ×3 (10:04→20:37)
[2019-07-22] MEDS: amLODIPine 5 MG TAB PO SCH (10:05)
[2019-07-22] MEDS: traZODone 50 MG TAB PO SCH (21:44)
[2019-07-23] MEDS: GABAPENTIN 300 MG CAP PO SCH ×3 (05:20→21:42)
--- NOTE | 2019-07-23 08:07 | Progress Note ---
Subjective Date of service: 07/23/19 Principal diagnosis: Schizoaffective disorder, Bpolar type Subjective Comment: Patient is calmer and less talkative this morning. She states her mood is great, "I am doing just very well". She denies paranoid/SI/HI/AVH. She is medication compliant and denies side effect. She sleeps well and she has good appetite. Nurse Report: Patient was calm last evening. She complains of feeling "over medicated". She states she took a nap because she was so sleepy. The patient's phone calls were limited after 9 pm due to her becoming increasingly agitated when she talks to others on the phone. She was medication compliant and slept continually throughout the night. The patient presents as sleeping 8 plus hours. Will continue to try to give patient breaks from continuous phone calls for the therapeutic benefit of a leveling out of her mood. Reason for continuing inpatient treatment: Patient is disorganized, paranoid and unable to care for self Review of Symptoms: Constitutional: Negative for weight loss ENT: Negative for stridor Respiratory: Negative for cough or hemoptysis All other systems reviewed and are negative MSE Appearance: Wearing appropriate clothing. Poor hygiene Behavior: Cooperative. Mood: "OK" Affect: Congruent with stated mood Thought Process: Goal directed Speech: decreased rate Thought Content: Paranoia Harmfulness Denies SI/HI Hallucinations: patient denies Consciousness: alert. Cognition/Memory: normal. Insight/Judgment: Limited. Assessment and Plan (1) Schizoaffective disorder, bipolar type Treatment Plan Due to the psychiatric conditions and treatment listed in the Assessment and Plan - the patient requires continued hospitalization. Will continue inpatient treatment to allow for medication adjustment and monitoring. Will continue q15 min safety checks. Will encourage the use of environmental modifications and non-pharmacologic approaches for the management of behavioral and psychological symptoms. Will continue current psych medications. Medication change made today: Will decrease and discontinue Seroquel and continue Risperidone 1mg bid with a plan to transition to Invega Sustenna to ensure supervisor seaming for medication side effects. The patient will continue on medications for physical illnesses, and Hospitalist will closely monitor these Continue intensive physical and occupational therapies. Monitor patient's mood, sleep, appetite, and behavior closely Encourage patient to participate in individual and group therapeutic sessions on the [place]. Will provide a safe and therapeutic environment for patient. ELOS 5 days Assessment and Plan - Patient Problems (1) Schizoaffective disorder, bipolar type Current Visit: Yes Status: Acute Medications and Allergies Allergies Allergy/AdvReac Type Severity Reaction Status Date / Time lisinopril AdvReac Unknown Verified 07/14/19 13:34 Home Medications Medication Instructions Recorded Confirmed Last Taken Type Celexa 40 mg PO DAILY 07/15/19 07/15/19 Unknown History Neurontin 600 mg PO TID 07/15/19 07/15/19 Unknown History Prilosec 20 mg PO DAILY 07/15/19 07/15/19 Unknown History SEROquel 300 mg PO QHS 07/15/19 07/15/19 Unknown History amLODIPine 5 mg PO DAILY 07/15/19 07/15/19 Unknown History metFORMIN 850 mg PO BID 07/15/19 07/15/19 Unknown History Active Meds: Active Medications Acetaminophen (Tylenol) 325 mg PO Q6H PRN PRN Reason: Pain, Mild (1-3) Last Admin: 07/20/19 09:14 Dose: 325 mg Documented by: Amlodipine Besylate (Amlodipine) 5 mg PO QDAY [facility] Last Admin: 07/22/19 10:05 Dose: 5 mg Documented by: Aspirin (Halfprin Ec) 81 mg PO QDAY [facility] Last Admin: 07/22/19 10:01 Dose: 81 mg Documented by: Citalopram Hydrobromide (Celexa) 40 mg PO QDAY [facility] Last Admin: 07/22/19 10:01 Dose: 40 mg Documented by: Divalproex Sodium (Depakote Dr) 500 mg PO TID [facility] Last Admin: 07/22/19 20:37 Dose: 500 mg Documented by: Gabapentin (Gabapentin) 600 mg PO Q8HR [facility] Last Admin: 07/23/19 05:20 Dose: 600 mg Documented by: Haloperidol Lactate (Haldol) 5 mg IM Q6H PRN PRN Reason: Agitation Hydrophilic Ointment (Vaseline Lip Therapy) 1 applic TP DIRECT PRN PRN Reason: Dry Lips Lorazepam (Ativan) 1 mg IM Q6H PRN PRN Reason: Agitation Melatonin (Melatonin) 5 mg PO QHS PRN PRN Reason: Sleep Metformin HCl (Glucophage) 850 mg PO BIDDIAB [facility] Last Admin: 07/22/19 18:00 Dose: 850 mg Documented by: Pantoprazole Sodium (Protonix) 20 mg PO QDAY [facility] Last Admin: 07/22/19 10:01 Dose: 20 mg Documented by: Quetiapine Fumarate (Seroquel) 200 mg PO BID [facility] Last Admin: 07/22/19 21:45 Dose: 200 mg Documented by: Risperidone (Risperdal) 1 mg PO BID [facility] Last Admin: 07/22/19 21:45 Dose: 1 mg Documented by: Trazodone HCl (Desyrel) 50 mg PO QHS [facility] Last Admin: 07/22/19 21:44 Dose: 50 mg Documented by: Results - Results Labs/Vitals: Laboratory Last Values WBC 7.1 K/mm3 (4.5-11.0) 07/14/19 16:24 RBC 3.78 M/mm3 (3.65-5.03) 07/14/19 16:24 Hgb 11.8 gm/dl (10.1-14.3) 07/14/19 16:24 Hct 36.1 % (30.3-42.9) 07/14/19 16:24 MCV 96 fl (79-97) 07/14/19 16:24 MCH 31 pg (28-32) 07/14/19 16:24 MCHC 33 % (30-34) 07/14/19 16:24 RDW 14.8 % (13.2-15.2) 07/14/19 16:24 Plt Count 351 K/mm3 (140-440) 07/14/19 16:24 Lymph % (Auto) 21.7 % (13.4-35.0) 07/14/19 16:24 [place] % (Auto) 5.3 % (0.0-7.3) 07/14/19 16:24 Eos % (Auto) 2.2 % (0.0-4.3) 07/14/19 16:24 Baso % (Auto) 0.9 % (0.0-1.8) 07/14/19 16:24 Lymph # 1.5 K/mm3 (1.2-5.4) 07/14/19 16:24 [place] # 0.4 K/mm3 (0.0-0.8) 07/14/19 16:24 Eos # 0.2 K/mm3 (0.0-0.4) 07/14/19 16:24 Baso # 0.1 K/mm3 (0.0-0.1) 07/14/19 16:24 Seg Neutrophils % 69.9 % (40.0-70.0) 07/14/19 16:24 Seg Neutrophils # 5.0 K/mm3 (1.8-7.7) 07/14/19 16:24 Sodium 142 mmol/L (137-145) 07/14/19 16:24 Potassium 3.1 mmol/L (3.6-5.0) L 07/14/19 16:24 Chloride 100.9 mmol/L (98-107) 07/14/19 16:24 Carbon Dioxide 22 mmol/L (22-30) 07/14/19 16:24 Anion Gap 22 mmol/L 07/14/19 16:24 BUN 18 mg/dL (7-17) H 07/14/19 16:24 Creatinine 0.8 mg/dL (0.7-1.2) 07/14/19 16:24 Estimated GFR > 60 ml/min 07/14/19 16:24 BUN/Creatinine Ratio 23 % 07/14/19 16:24 Glucose 115 mg/dL (65-100) H 07/14/19 16:24 POC Glucose 99 (70-105) 07/23/19 06:34 Hemoglobin A1c 6.4 % (4-6) H 07/14/19 16:24 Calcium 8.2 mg/dL (8.4-10.2) L 07/14/19 16:24 Total Bilirubin 0.50 mg/dL (0.1-1.2) 07/14/19 16:24 AST 40 units/L (5-40) 07/14/19 16:24 ALT 27 units/L (7-56) 07/14/19 16:24 Alkaline Phosphatase 61 units/L (35-129) 07/14/19 16:24 Total Protein 6.7 g/dL (6.3-8.2) 07/14/19 16:24 Albumin 3.6 g/dL (3.9-5) L 07/14/19 16:24 Albumin/Globulin Ratio 1.2 % 07/14/19 16:24 Triglycerides 73 mg/dL (2-149) 07/14/19 16:24 Cholesterol 110 mg/dL (50-199) 07/14/19 16:24 LDL Cholesterol Direct 51 mg/dL (50-130) 07/14/19 16:24 HDL Cholesterol 47 mg/dL (40-59) 07/14/19 16:24 Cholesterol/HDL Ratio 2.34 % 07/14/19 16:24 TSH 3.480 mlU/mL (0.270-4.200) 07/14/19 16:24 Urine Color Yellow (Yellow) 07/14/19 Unknown Urine Turbidity Clear (Clear) 07/14/19 Unknown Urine pH 6.0 (5.0-7.0) 07/14/19 Unknown Ur Specific [place] 1.015 (1.003-1.030) 07/14/19 Unknown Urine Protein <15 mg/dl mg/dL (Negative) 07/14/19 Unknown Urine Glucose (UA) Neg mg/dL (Negative) 07/14/19 Unknown Urine Ketones 20 mg/dL (Negative) 07/14/19 Unknown Urine Blood Sm (Negative) 07/14/19 Unknown Urine Nitrite Neg (Negative) 07/14/19 Unknown Urine Bilirubin Neg (Negative) 07/14/19 Unknown Urine Urobilinogen 2.0 mg/dL (<2.0) 07/14/19 Unknown Ur Leukocyte Esterase Neg (Negative) 07/14/19 Unknown Urine WBC (Auto) 49.0 /HPF (0.0-6.0) H 07/14/19 Unknown Urine RBC (Auto) 7.0 /HPF (0.0-6.0) 07/14/19 Unknown U Epithel Cells (Auto) 2.0 /HPF (0-13.0) 07/14/19 Unknown Urine Bacteria (Auto) 1+ /HPF (Negative) 07/14/19 Unknown Urine Mucus Few /HPF 07/14/19 Unknown Last Vital Signs Temp 98.0 F 07/22/19 19:19 Pulse 63 07/22/19 19:19 Resp 16 07/22/19 19:19 BP 105/55 07/22/19 19:19 Pulse Ox 98 07/22/19 19:19
[2019-07-23] MEDS: DIVALPROEX DR 250 MG TAB PO SCH ×3 (10:43→20:37)
[2019-07-23] MEDS: ASPIRIN EC 81 MG TAB PO SCH (10:43)
[2019-07-23] MEDS: CITALOPRAM 20 MG TAB PO SCH (10:43)
[2019-07-23] MEDS: risperiDONE 1 MG TAB PO SCH ×2 (10:43→21:42)
[2019-07-23] MEDS: amLODIPine 5 MG TAB PO SCH (10:44)
[2019-07-23] MEDS: PANTOPRAZOLE 20 MG TAB PO SCH (10:44)
[2019-07-23] MEDS: metFORMIN 850 MG TAB PO SCH ×2 (10:44→17:59)
[2019-07-23] MEDS: traZODone 50 MG TAB PO SCH (21:42)
[2019-07-23] MEDS: QUEtiapine 200 MG TAB PO SCH (21:42)
[2019-07-24] MEDS: GABAPENTIN 300 MG CAP PO SCH ×3 (05:42→21:21)
[2019-07-24] MEDS: DIVALPROEX DR 250 MG TAB PO SCH ×3 (08:45→20:38)
--- NOTE | 2019-07-24 09:13 | Progress Note ---
Subjective Date of service: 07/24/19 Principal diagnosis: Schizoaffective disorder, Bpolar type Subjective Comment: Patient is calm and pleasant this morning. She states her mood is good. She denies paranoid/SI/HI/AVH. She is medication compliant and denies side effect. She sleeps well and she has good appetite. Nurse Report: pt is alert and oriented x3, calm and cooperative, good appetite, medication compliant, able to make needs known, denies si/hi, denies a/v/h, could be irritable at times, no distress noted, will continue to monitor for safety. Reason for continuing inpatient treatment: To check Serum level of Valproic acid in am tomorrow. Review of Symptoms: Constitutional: Negative for weight loss ENT: Negative for stridor Respiratory: Negative for cough or hemoptysis All other systems reviewed and are negative MSE Appearance: Wearing appropriate clothing. Poor hygiene Behavior: Cooperative. Mood: "OK" Affect: Congruent with stated mood Thought Process: Goal directed Speech: decreased rate Thought Content: Paranoia Harmfulness Denies SI/HI Hallucinations: patient denies Consciousness: alert. Cognition/Memory: normal. Insight/Judgment: Limited. Assessment and Plan (1) Schizoaffective disorder, bipolar type Treatment Plan Due to the psychiatric conditions and treatment listed in the Assessment and Plan - the patient requires continued hospitalization. Will continue inpatient treatment to allow for medication adjustment and monitoring. Will continue q15 min safety checks. Will encourage the use of environmental modifications and non-pharmacologic approaches for the management of behavioral and psychological symptoms. Will continue current psych medications. Medication change made today: None Monitor for medication side effects. The patient will continue on medications for physical illnesses, and Hospitalist will closely monitor these Continue intensive physical and occupational therapies. Monitor patient's mood, sleep, appetite, and behavior closely Encourage patient to participate in individual and group therapeutic sessions on the [place]. Will provide a safe and therapeutic environment for patient. ELOS 1 - 2 days Assessment and Plan - Patient Problems (1) Schizoaffective disorder, bipolar type Current Visit: Yes Status: Acute Medications and Allergies Allergies Allergy/AdvReac Type Severity Reaction Status Date / Time lisinopril AdvReac Unknown Verified 07/14/19 13:34 Home Medications Medication Instructions Recorded Confirmed Last Taken Type Celexa 40 mg PO DAILY 07/15/19 07/15/19 Unknown History Neurontin 600 mg PO TID 07/15/19 07/15/19 Unknown History Prilosec 20 mg PO DAILY 07/15/19 07/15/19 Unknown History SEROquel 300 mg PO QHS 07/15/19 07/15/19 Unknown History amLODIPine 5 mg PO DAILY 07/15/19 07/15/19 Unknown History metFORMIN 850 mg PO BID 07/15/19 07/15/19 Unknown History Active Meds: Active Medications Acetaminophen (Tylenol) 325 mg PO Q6H PRN PRN Reason: Pain, Mild (1-3) Last Admin: 07/20/19 09:14 Dose: 325 mg Documented by: Amlodipine Besylate (Amlodipine) 5 mg PO QDAY [facility] Last Admin: 07/23/19 10:44 Dose: 5 mg Documented by: Aspirin (Halfprin Ec) 81 mg PO QDAY [facility] Last Admin: 07/23/19 10:43 Dose: 81 mg Documented by: Citalopram Hydrobromide (Celexa) 40 mg PO QDAY [facility] Last Admin: 07/23/19 10:43 Dose: 40 mg Documented by: Divalproex Sodium (Depakote Dr) 500 mg PO TID [facility] Last Admin: 07/23/19 20:37 Dose: 500 mg Documented by: Gabapentin (Gabapentin) 600 mg PO Q8HR [facility] Last Admin: 07/24/19 05:42 Dose: 600 mg Documented by: Haloperidol Lactate (Haldol) 5 mg IM Q6H PRN PRN Reason: Agitation Hydrophilic Ointment (Vaseline Lip Therapy) 1 applic TP DIRECT PRN PRN Reason: Dry Lips Lorazepam (Ativan) 1 mg IM Q6H PRN PRN Reason: Agitation Melatonin (Melatonin) 5 mg PO QHS PRN PRN Reason: Sleep Metformin HCl (Glucophage) 850 mg PO BIDDIAB [facility] Last Admin: 07/23/19 17:59 Dose: 850 mg Documented by: Pantoprazole Sodium (Protonix) 20 mg PO QDAY [facility] Last Admin: 07/23/19 10:44 Dose: 20 mg Documented by: Quetiapine Fumarate (Seroquel) 200 mg PO QHS [facility] Last Admin: 07/23/19 21:42 Dose: 200 mg Documented by: Risperidone (Risperdal) 1 mg PO BID [facility] Last Admin: 07/23/19 21:42 Dose: 1 mg Documented by: Trazodone HCl (Desyrel) 50 mg PO QHS [facility] Last Admin: 07/23/19 21:42 Dose: 50 mg Documented by: Results - Results Labs/Vitals: Laboratory Last Values WBC 7.1 K/mm3 (4.5-11.0) 07/14/19 16:24 RBC 3.78 M/mm3 (3.65-5.03) 07/14/19 16:24 Hgb 11.8 gm/dl (10.1-14.3) 07/14/19 16:24 Hct 36.1 % (30.3-42.9) 07/14/19 16:24 MCV 96 fl (79-97) 07/14/19 16:24 MCH 31 pg (28-32) 07/14/19 16:24 MCHC 33 % (30-34) 07/14/19 16:24 RDW 14.8 % (13.2-15.2) 07/14/19 16:24 Plt Count 351 K/mm3 (140-440) 07/14/19 16:24 Lymph % (Auto) 21.7 % (13.4-35.0) 07/14/19 16:24 [place] % (Auto) 5.3 % (0.0-7.3) 07/14/19 16:24 Eos % (Auto) 2.2 % (0.0-4.3) 07/14/19 16:24 Baso % (Auto) 0.9 % (0.0-1.8) 07/14/19 16:24 Lymph # 1.5 K/mm3 (1.2-5.4) 07/14/19 16:24 [place] # 0.4 K/mm3 (0.0-0.8) 07/14/19 16:24 Eos # 0.2 K/mm3 (0.0-0.4) 07/14/19 16:24 Baso # 0.1 K/mm3 (0.0-0.1) 07/14/19 16:24 Seg Neutrophils % 69.9 % (40.0-70.0) 07/14/19 16:24 Seg Neutrophils # 5.0 K/mm3 (1.8-7.7) 07/14/19 16:24 Sodium 142 mmol/L (137-145) 07/14/19 16:24 Potassium 3.1 mmol/L (3.6-5.0) L 07/14/19 16:24 Chloride 100.9 mmol/L (98-107) 07/14/19 16:24 Carbon Dioxide 22 mmol/L (22-30) 07/14/19 16:24 Anion Gap 22 mmol/L 07/14/19 16:24 BUN 18 mg/dL (7-17) H 07/14/19 16:24 Creatinine 0.8 mg/dL (0.7-1.2) 07/14/19 16:24 Estimated GFR > 60 ml/min 07/14/19 16:24 BUN/Creatinine Ratio 23 % 07/14/19 16:24 Glucose 115 mg/dL (65-100) H 07/14/19 16:24 POC Glucose 80 (70-105) 07/24/19 06:47 Hemoglobin A1c 6.4 % (4-6) H 07/14/19 16:24 Calcium 8.2 mg/dL (8.4-10.2) L 07/14/19 16:24 Total Bilirubin 0.50 mg/dL (0.1-1.2) 07/14/19 16:24 AST 40 units/L (5-40) 07/14/19 16:24 ALT 27 units/L (7-56) 07/14/19 16:24 Alkaline Phosphatase 61 units/L (35-129) 07/14/19 16:24 Total Protein 6.7 g/dL (6.3-8.2) 07/14/19 16:24 Albumin 3.6 g/dL (3.9-5) L 07/14/19 16:24 Albumin/Globulin Ratio 1.2 % 07/14/19 16:24 Triglycerides 73 mg/dL (2-149) 07/14/19 16:24 Cholesterol 110 mg/dL (50-199) 07/14/19 16:24 LDL Cholesterol Direct 51 mg/dL (50-130) 07/14/19 16:24 HDL Cholesterol 47 mg/dL (40-59) 07/14/19 16:24 Cholesterol/HDL Ratio 2.34 % 07/14/19 16:24 TSH 3.480 mlU/mL (0.270-4.200) 07/14/19 16:24 Urine Color Yellow (Yellow) 07/14/19 Unknown Urine Turbidity Clear (Clear) 07/14/19 Unknown Urine pH 6.0 (5.0-7.0) 07/14/19 Unknown Ur Specific [place] 1.015 (1.003-1.030) 07/14/19 Unknown Urine Protein <15 mg/dl mg/dL (Negative) 07/14/19 Unknown Urine Glucose (UA) Neg mg/dL (Negative) 07/14/19 Unknown Urine Ketones 20 mg/dL (Negative) 07/14/19 Unknown Urine Blood Sm (Negative) 07/14/19 Unknown Urine Nitrite Neg (Negative) 07/14/19 Unknown Urine Bilirubin Neg (Negative) 07/14/19 Unknown Urine Urobilinogen 2.0 mg/dL (<2.0) 07/14/19 Unknown Ur Leukocyte Esterase Neg (Negative) 07/14/19 Unknown Urine WBC (Auto) 49.0 /HPF (0.0-6.0) H 07/14/19 Unknown Urine RBC (Auto) 7.0 /HPF (0.0-6.0) 07/14/19 Unknown U Epithel Cells (Auto) 2.0 /HPF (0-13.0) 07/14/19 Unknown Urine Bacteria (Auto) 1+ /HPF (Negative) 07/14/19 Unknown Urine Mucus Few /HPF 07/14/19 Unknown Last Vital Signs Temp 97.5 F L 07/24/19 07:19 Pulse 57 L 07/24/19 07:19 Resp 18 07/24/19 07:19 BP 95/49 07/24/19 07:19 Pulse Ox 98 07/24/19 07:19
[2019-07-24] MEDS: CITALOPRAM 20 MG TAB PO SCH (09:24)
[2019-07-24] MEDS: PANTOPRAZOLE 20 MG TAB PO SCH (09:24)
[2019-07-24] MEDS: ASPIRIN EC 81 MG TAB PO SCH (09:24)
[2019-07-24] MEDS: risperiDONE 1 MG TAB PO SCH ×2 (09:24→21:22)
[2019-07-24] MEDS: metFORMIN 850 MG TAB PO SCH ×2 (09:24→16:27)
[2019-07-24] MEDS: amLODIPine 5 MG TAB PO SCH (09:27)
[2019-07-24] MEDS: QUEtiapine 200 MG TAB PO SCH (21:21)
[2019-07-24] MEDS: traZODone 50 MG TAB PO SCH (21:22)
[2019-07-25] MEDS: GABAPENTIN 300 MG CAP PO SCH ×2 (06:01→14:11)
--- NOTE | 2019-07-25 09:06 | Discharge Summary ---
Providers - Providers Date of Admission: 07/14/19 15:19 Date of discharge: 07/25/19 Attending physician: ELISE LYNN MD 07/14/19 13:35 Consult to Physician [CONS] Routine Comment: Consulting Provider: NICKIE MALIK Physician Instructions: Reason For Exam: manage medical conditions Hospitalization Reason for admission: Danger to self, Impaired reality testing, Unable to care for self Condition: Stable Hospital course: The patient was provided inpatient psychiatric treatment with safe and supportive environment, group/individual therapy, psychiatric medication, medication adjustment, adverse effect monitor, medical evaluation, medical treatment, social service assessment, social support meeting, placement assessme nt and psycho-education. The patients mood, cognition, behavior, motivation, compliance to treatment and appreciation on family/social support are improved and stabilized. At the time of discharge, the patient had no suicidal ideas, no homicidal ideas, no aggressive thoughts, no endangering behavior and no debilitating adverse effects. ?The patient agreed on the treatment plan, understood the risk, benefit, alternative treatment, potential consequence of no treatment, and gave informed consent. Disposition: DC-01 TO HOME OR SELFCARE Time spent for discharge: 34 mins Allergies/Adverse Reactions: Allergies lisinopril Adverse Reaction (Verified 07/14/19 13:34) Unknown Vital Signs: Last Vital Signs Temp 97.3 F L 07/25/19 07:02 Pulse 58 L 07/25/19 07:02 Resp 18 07/25/19 07:02 BP 116/68 07/25/19 07:02 Pulse Ox 94 07/25/19 07:02 Last Lab: Laboratory Last Values WBC 7.1 K/mm3 (4.5-11.0) 07/14/19 16:24 RBC 3.78 M/mm3 (3.65-5.03) 07/14/19 16:24 Hgb 11.8 gm/dl (10.1-14.3) 07/14/19 16:24 Hct 36.1 % (30.3-42.9) 07/14/19 16:24 MCV 96 fl (79-97) 07/14/19 16:24 MCH 31 pg (28-32) 07/14/19 16:24 MCHC 33 % (30-34) 07/14/19 16:24 RDW 14.8 % (13.2-15.2) 07/14/19 16:24 Plt Count 351 K/mm3 (140-440) 07/14/19 16:24 Lymph % (Auto) 21.7 % (13.4-35.0) 07/14/19 16:24 [place] % (Auto) 5.3 % (0.0-7.3) 07/14/19 16:24 Eos % (Auto) 2.2 % (0.0-4.3) 07/14/19 16:24 Baso % (Auto) 0.9 % (0.0-1.8) 07/14/19 16:24 Lymph # 1.5 K/mm3 (1.2-5.4) 07/14/19 16:24 [place] # 0.4 K/mm3 (0.0-0.8) 07/14/19 16:24 Eos # 0.2 K/mm3 (0.0-0.4) 07/14/19 16:24 Baso # 0.1 K/mm3 (0.0-0.1) 07/14/19 16:24 Seg Neutrophils % 69.9 % (40.0-70.0) 07/14/19 16:24 Seg Neutrophils # 5.0 K/mm3 (1.8-7.7) 07/14/19 16:24 Sodium 142 mmol/L (137-145) 07/14/19 16:24 Potassium 3.1 mmol/L (3.6-5.0) L 07/14/19 16:24 Chloride 100.9 mmol/L (98-107) 07/14/19 16:24 Carbon Dioxide 22 mmol/L (22-30) 07/14/19 16:24 Anion Gap 22 mmol/L 07/14/19 16:24 BUN 18 mg/dL (7-17) H 07/14/19 16:24 Creatinine 0.8 mg/dL (0.7-1.2) 07/14/19 16:24 Estimated GFR > 60 ml/min 07/14/19 16:24 BUN/Creatinine Ratio 23 % 07/14/19 16:24 Glucose 115 mg/dL (65-100) H 07/14/19 16:24 POC Glucose 92 (70-105) 07/25/19 07:16 Hemoglobin A1c 6.4 % (4-6) H 07/14/19 16:24 Calcium 8.2 mg/dL (8.4-10.2) L 07/14/19 16:24 Total Bilirubin 0.50 mg/dL (0.1-1.2) 07/14/19 16:24 AST 40 units/L (5-40) 07/14/19 16:24 ALT 27 units/L (7-56) 07/14/19 16:24 Alkaline Phosphatase 61 units/L (35-129) 07/14/19 16:24 Total Protein 6.7 g/dL (6.3-8.2) 07/14/19 16:24 Albumin 3.6 g/dL (3.9-5) L 07/14/19 16:24 Albumin/Globulin Ratio 1.2 % 07/14/19 16:24 Triglycerides 73 mg/dL (2-149) 07/14/19 16:24 Cholesterol 110 mg/dL (50-199) 07/14/19 16:24 LDL Cholesterol Direct 51 mg/dL (50-130) 07/14/19 16:24 HDL Cholesterol 47 mg/dL (40-59) 07/14/19 16:24 Cholesterol/HDL Ratio 2.34 % 07/14/19 16:24 TSH 3.480 mlU/mL (0.270-4.200) 07/14/19 16:24 Urine Color Yellow (Yellow) 07/14/19 Unknown Urine Turbidity Clear (Clear) 07/14/19 Unknown Urine pH 6.0 (5.0-7.0) 07/14/19 Unknown Ur Specific [place] 1.015 (1.003-1.030) 07/14/19 Unknown Urine Protein <15 mg/dl mg/dL (Negative) 07/14/19 Unknown Urine Glucose (UA) Neg mg/dL (Negative) 07/14/19 Unknown Urine Ketones 20 mg/dL (Negative) 07/14/19 Unknown Urine Blood Sm (Negative) 07/14/19 Unknown Urine Nitrite Neg (Negative) 07/14/19 Unknown Urine Bilirubin Neg (Negative) 07/14/19 Unknown Urine Urobilinogen 2.0 mg/dL (<2.0) 07/14/19 Unknown Ur Leukocyte Esterase Neg (Negative) 07/14/19 Unknown Urine WBC (Auto) 49.0 /HPF (0.0-6.0) H 07/14/19 Unknown Urine RBC (Auto) 7.0 /HPF (0.0-6.0) 07/14/19 Unknown U Epithel Cells (Auto) 2.0 /HPF (0-13.0) 07/14/19 Unknown Urine Bacteria (Auto) 1+ /HPF (Negative) 07/14/19 Unknown Urine Mucus Few /HPF 07/14/19 Unknown - Discharge Diagnoses (1) Schizoaffective disorder, bipolar type Status: Acute Core Measure Documentation - Palliative Care Palliative Care/ Comfort Measures: Not Applicable - Core Measures Any of the following diagnoses?: none Exam - Constitutional Vitals: Temp Pulse Resp BP Pulse Ox 97.3 F L 58 L 18 116/68 94 07/25/19 07:02 07/25/19 07:02 07/25/19 07:02 07/25/19 07:02 07/25/19 07:02 General appearance: Present: no acute distress - EENT Eyes: Present: PERRL, EOM intact ENT: hearing intact, clear oral mucosa - Neck Neck: Present: supple, normal ROM - Respiratory Respiratory effort: normal Plan Activity: advance as tolerated Weight Bearing Status: Weight Bear as Tolerated Diet: regular Care Plan Goals: Maintain good and stable mental health. Plan of Treatment: The patient should be compliant with medications, not to use drugs and not to drink alcohol. The patient understands that if suicidal ideas, homicidal ideas, or any endangering thoughts arise, the patient should immediately seek for emergent assistance including but not limited to crisis hot line and emergency room. Follow up with outpatient Psychiatrist and PCP within 7 - 14 days of discharge. Assessment: Schizoaffective disorder, Bipolar type Follow up with: HAYDEN WILEY [Other] - 7 Days Prescriptions: traZODone [Desyrel] 50 mg PO QHS #30 tablet Melatonin [Melatonin 5MG TAB] 5 mg PO QHS PRN #30 tablet PRN Reason: Sleep Divalproex Dr [Depakote Dr] 500 mg PO TID #90 tablet risperiDONE [RisperDAL] 1 mg PO BID #60 tablet
[2019-07-25] MEDS: PANTOPRAZOLE 20 MG TAB PO SCH (09:21)
[2019-07-25] MEDS: CITALOPRAM 20 MG TAB PO SCH (09:21)
[2019-07-25] MEDS: ASPIRIN EC 81 MG TAB PO SCH (09:21)
[2019-07-25] MEDS: risperiDONE 1 MG TAB PO SCH (09:21)
[2019-07-25] MEDS: DIVALPROEX DR 250 MG TAB PO SCH ×2 (09:22→14:12)
[2019-07-25] MEDS: metFORMIN 850 MG TAB PO SCH ×2 (09:22→16:25)
[2019-07-25] MEDS: amLODIPine 5 MG TAB PO SCH (09:23)
[2019-07-25 09:25] VITALS: BP 117/54
== END 2019-07-25 17:40 | disposition home or self-care (01) | DRG 885 ==
LOC: 3A 08:25 → UNDOADMIN 08:25 → 5A 15:19
PROVIDERS: ADMIT Psychiatry & Neurology Psychiatry; ATTEND Psychiatry & Neurology Psychiatry
DX: F25.0 Schizoaffective disorder, bipolar type (principal); N30.00 Acute cystitis without hematuria; E11.9 Type 2 diabetes mellitus without complications; I25.2 Old myocardial infarction; I10 Essential (primary) hypertension; Z72.89 Other problems related to lifestyle; F29 Unspecified psychosis not due to a substance or known physiological condition; Z85.3 Personal history of malignant neoplasm of breast; Z88.8 Allergy status to other drugs, medicaments and biological substances; I25.10 Atherosclerotic heart disease of native coronary artery without angina pectoris; Z90.49 Acquired absence of other specified parts of digestive tract; E78.5 Hyperlipidemia, unspecified
CPT/HCPCS: 36415; 80053; 80061; 80164; 81001; 82962; 83036; 84443; 85025; 87086; G0378; J1630